=== PATIENT | female | born 1965 | race Two or more races ===

== ENCOUNTER 2020-09-20 11:23 | Observation (INO) | payer MEDICARE ==
[2020-09-20] MEDS ORDERED: Ketorolac 30 MG/ML SDV IVPUSH ONE (11:45)
[2020-09-20] MEDS ORDERED: Ondansetron 4 MG/2 ML SDV IVPUSH ONE (11:45)
[2020-09-20] MEDS ORDERED: Sodium Chloride 0.9% 1,000 ML IV ONE (11:45)
[2020-09-20] MEDS ORDERED: diphenhydrAMINE 50 MG/ML SDV IVPUSH ONE (11:45)
--- NOTE | 2020-09-20 11:57 | EDM.PDOC ---
ED HPI GENERAL MEDICAL PROBLEM - General Chief Complaint: Gastrointestinal Problem Stated Complaint: VOMITING Time Seen by Provider: 09/20/20 11:25 Source of Information: Reports: Patient - History of Present Illness INITIAL COMMENTS - FREE TEXT/NARRATIVE: c/o abd pain x 2d has chronic recurrent abd pain, abd pain x 2d initial c/o, then said 3d no PO intake today altho does not have dec'd turgor pain continuous, never without pain no BM in past 2d pain more R sided altho says it hurts throughout LABS/IMAGING: none previous here at [facility] PCP: Dr Damon whose office sent his last clinic note from 07-01-20 MPMP: in past yr with 4 fills of Lyrica 75 mg TID, all in past 4 months, no narcotics PSH: several abd surgeries including appy and choly, has h/o SBO, has had 8 surgeries total as per right lower abdomen Pain Score (Numeric/FACES): 10 - Related Data Allergies Allergy/AdvReac Type Severity Reaction Status Date / Time No Known Allergies Allergy Verified 09/20/20 11:41 ED ROS GENERAL - Review of Systems Review Of Systems: See Below Constitutional: Reports: No Symptoms HEENT: Reports: No Symptoms Respiratory: Reports: No Symptoms Cardiovascular: Reports: No Symptoms Endocrine: Reports: No Symptoms GI/Abdominal: Reports: Abdominal Pain, Nausea, Vomiting : Reports: No Symptoms Musculoskeletal: Reports: No Symptoms Skin: Reports: No Symptoms Neurological: Reports: No Symptoms Psychiatric: Reports: No Symptoms Hematologic/Lymphatic: Reports: No Symptoms Immunologic: Reports: No Symptoms ED EXAM, GI/ABD - Physical Exam Exam: See Below Exam Limited By: No Limitations General Appearance: Alert, WD/WN, Other (holding abd on R side) Nose: Normal Inspection Throat/Mouth: Normal Inspection, Normal Lips, Normal Voice, No Airway Compromise Head: Atraumatic, Normocephalic Neck: Normal Inspection, Supple, Non-Tender, Full Range of Motion. No: Lymphadenopathy (R) Respiratory/Chest: No Respiratory Distress, Lungs Clear, Normal Breath Sounds Cardiovascular: Regular Rate, Rhythm, No Edema, Other (2/6 ANGELI at LSB) GI/Abdominal Exam: Other (good BS x 4, wide old midline scar from xiphoid to umbilicus, no localized pain, has nonspecific c/o tender throughout with a little less on right, no CVAT b/l, no guard/rebound) Back Exam: Normal Inspection, Full Range of Motion, NT Extremities: Normal Inspection, Normal Range of Motion, Non-Tender, No Pedal Amrik ma Neurological: Alert, Oriented, CN II-XII Intact, Normal Cognition, No Motor/Sensory Deficits Psychiatric: Anxious Skin Exam: Warm, Dry, Intact, Normal Color, No Rash Lymphatic: No Adenopathy Course - Vital Signs Last Recorded V/S: Last Vital Signs Temp 36.2 C 09/20/20 11:25 Pulse 71 09/20/20 14:20 Resp 15 09/20/20 14:20 BP 158/67 H 09/20/20 14:20 Pulse Ox 97 09/20/20 14:20 - Orders/Labs/Meds Orders: Active Orders 24 hr Category Date Time Status Abdomen Pelvis w Cont [CT] Stat Exams 09/20/20 11:57 Ordered Labs: Laboratory Tests 09/20/20 09/20/20 09/20/20 Range/Units 12:11 12:11 12:11 WBC 11.0 H (3.0-10.3) x10-3/uL RBC 4.62 (3.60-5.20) x10(6)uL Hgb 13.6 (11.4-15.5) g/dL Hct 41.5 (34.2-48.2) % MCV 89.7 (76.7-100.5) fL MCH 29.4 (23.9-33.9) pg MCHC 32.8 (31.9-34.8) g/dL RDW 14.1 (12.3-16.5) % Plt Count 308 (151-488) x10(3)uL MPV 8.7 (7.1-12.4) fL Neut % (Auto) 70.3 (30.8-76.2) % Lymph % (Auto) 22.7 (18.4-52.1) % [place] % (Auto) 5.7 (4.4-15.7) % Eos % (Auto) 0.5 L (0.6-8.1) % Baso % (Auto) 0.8 (0.2-1.5) % Neut # (Auto) 7.7 H (1.5-6.3) x10-3/uL Lymph # (Auto) 2.5 (1.0-4.4) x10-3/uL [place] # (Auto) 0.6 (0.3-1.0) x10-3/uL Eos # (Auto) 0.1 (0.0-0.8) x10-3/uL Baso # (Auto) 0.1 (0.0-0.1) x10-3/uL Sodium 140 (135-145) mmol/L Potassium 3.7 (3.5-5.3) mmol/L Chloride 103 (100-110) mmol/L Carbon Dioxide 28 (21-32) mmol/L BUN 15 (7-18) mg/dL Creatinine 0.9 (0.55-1.02) mg/dL Est Cr Clr Drug Dosing TNP Estimated GFR (MDRD) > 60 (>60) BUN/Creatinine Ratio 16.7 (9-20) Glucose 127 H (80-116) mg/dL Lactic Acid (0.4-2.0) mmol/L Calcium 8.8 (8.6-10.2) mg/dL Total Bilirubin 0.5 (0.1-1.3) mg/dL AST 17 (5-25) IU/L ALT 29 (12-36) U/L Alkaline Phosphatase 108 (56-112) IU/L Troponin I (4.0-60.3) pg/mL C-Reactive Protein 4.5 H* (0.5-0.9) mg/dL Total Protein 8.6 H (6.0-8.0) g/dL Albumin 3.6 (3.5-5.2) g/dL Globulin 5.0 g/dL Albumin/Globulin Ratio 0.7 Lipase 46 L (73-393) U/L Urine Color (YELLOW) Urine Appearance (CLEAR) Urine pH (5.0-6.5) Ur Specific [place] (1.010-1.025) Urine Protein (NEGATIVE) mg/dL Urine Glucose (UA) (NORMAL) mg/dL Urine Ketones (NEGATIVE) mg/dL Urine Occult Blood (NEGATIVE) Urine Nitrite (NEGATIVE) Urine Bilirubin (NEGATIVE) Urine Urobilinogen (NEGATIVE) mg/dL Ur Leukocyte Esterase (NEGATIVE) Urine RBC (0-5) Urine WBC (0-5) Ur Squamous Epith Cells (NS,R,O) Urine Bacteria (NS) Urine Mucus (NS) SARS-CoV-2 RNA (JEANNINE) (NEGATIVE) 09/20/20 09/20/20 09/20/20 Range/Units 12:11 12:11 12:34 WBC (3.0-10.3) x10-3/uL RBC (3.60-5.20) x10(6)uL Hgb (11.4-15.5) g/dL Hct (34.2-48.2) % MCV (76.7-100.5) fL MCH (23.9-33.9) pg MCHC (31.9-34.8) g/dL RDW (12.3-16.5) % Plt Count (151-488) x10(3)uL MPV (7.1-12.4) fL Neut % (Auto) (30.8-76.2) % Lymph % (Auto) (18.4-52.1) % [place] % (Auto) (4.4-15.7) % Eos % (Auto) (0.6-8.1) % Baso % (Auto) (0.2-1.5) % Neut # (Auto) (1.5-6.3) x10-3/uL Lymph # (Auto) (1.0-4.4) x10-3/uL [place] # (Auto) (0.3-1.0) x10-3/uL Eos # (Auto) (0.0-0.8) x10-3/uL Baso # (Auto) (0.0-0.1) x10-3/uL Sodium (135-145) mmol/L Potassium (3.5-5.3) mmol/L Chloride (100-110) mmol/L Carbon Dioxide (21-32) mmol/L BUN (7-18) mg/dL Creatinine (0.55-1.02) mg/dL Est Cr Clr Drug Dosing Estimated GFR (MDRD) (>60) BUN/Creatinine Ratio (9-20) Glucose (80-116) mg/dL Lactic Acid 1.1 (0.4-2.0) mmol/L Calcium (8.6-10.2) mg/dL Total Bilirubin (0.1-1.3) mg/dL AST (5-25) IU/L ALT (12-36) U/L Alkaline Phosphatase (56-112) IU/L Troponin I 4.3 (4.0-60.3) pg/mL C-Reactive Protein (0.5-0.9) mg/dL Total Protein (6.0-8.0) g/dL Albumin (3.5-5.2) g/dL Globulin g/dL Albumin/Globulin Ratio Lipase (73-393) U/L Urine Color (YELLOW) Urine Appearance (CLEAR) Urine pH (5.0-6.5) Ur Specific [place] (1.010-1.025) Urine Protein (NEGATIVE) mg/dL Urine Glucose (UA) (NORMAL) mg/dL Urine Ketones (NEGATIVE) mg/dL Urine Occult Blood (NEGATIVE) Urine Nitrite (NEGATIVE) Urine Bilirubin (NEGATIVE) Urine Urobilinogen (NEGATIVE) mg/dL Ur Leukocyte Esterase (NEGATIVE) Urine RBC (0-5) Urine WBC (0-5) Ur Squamous Epith Cells (NS,R,O) Urine Bacteria (NS) Urine Mucus (NS) SARS-CoV-2 RNA (JEANNINE) Negative (NEGATIVE) 09/20/20 Range/Units 13:05 WBC (3.0-10.3) x10-3/uL RBC (3.60-5.20) x10(6)uL Hgb (11.4-15.5) g/dL Hct (34.2-48.2) % MCV (76.7-100.5) fL MCH (23.9-33.9) pg MCHC (31.9-34.8) g/dL RDW (12.3-16.5) % Plt Count (151-488) x10(3)uL MPV (7.1-12.4) fL Neut % (Auto) (30.8-76.2) % Lymph % (Auto) (18.4-52.1) % [place] % (Auto) (4.4-15.7) % Eos % (Auto) (0.6-8.1) % Baso % (Auto) (0.2-1.5) % Neut # (Auto) (1.5-6.3) x10-3/uL Lymph # (Auto) (1.0-4.4) x10-3/uL [place] # (Auto) (0.3-1.0) x10-3/uL Eos # (Auto) (0.0-0.8) x10-3/uL Baso # (Auto) (0.0-0.1) x10-3/uL Sodium (135-145) mmol/L Potassium (3.5-5.3) mmol/L Chloride (100-110) mmol/L Carbon Dioxide (21-32) mmol/L BUN (7-18) mg/dL Creatinine (0.55-1.02) mg/dL Est Cr Clr Drug Dosing Estimated GFR (MDRD) (>60) BUN/Creatinine Ratio (9-20) Glucose (80-116) mg/dL Lactic Acid (0.4-2.0) mmol/L Calcium (8.6-10.2) mg/dL Total Bilirubin (0.1-1.3) mg/dL AST (5-25) IU/L ALT (12-36) U/L Alkaline Phosphatase (56-112) IU/L Troponin I (4.0-60.3) pg/mL C-Reactive Protein (0.5-0.9) mg/dL Total Protein (6.0-8.0) g/dL Albumin (3.5-5.2) g/dL Globulin g/dL Albumin/Globulin Ratio Lipase (73-393) U/L Urine Color Yellow (YELLOW) Urine Appearance Cloudy (CLEAR) Urine pH 5.0 (5.0-6.5) Ur Specific [place] 1.020 (1.010-1.025) Urine Protein 30 H (NEGATIVE) mg/dL Urine Glucose (UA) Normal (NORMAL) mg/dL Urine Ketones Negative (NEGATIVE) mg/dL Urine Occult Blood Moderate H (NEGATIVE) Urine Nitrite Negative (NEGATIVE) Urine Bilirubin Small H (NEGATIVE) Urine Urobilinogen Normal (NEGATIVE) mg/dL Ur Leukocyte Esterase Negative (NEGATIVE) Urine RBC 5-10 H (0-5) Urine WBC 0-5 (0-5) Ur Squamous Epith Cells Moderate H (NS,R,O) Urine Bacteria Few H (NS) Urine Mucus Few H (NS) SARS-CoV-2 RNA (JEANNINE) (NEGATIVE) Meds: Medications Discontinued Medications Generic Name Dose Route Start Last Admin Trade Name Freq PRN Reason Stop Dose Admin Diphenhydramine HCl 50 mg 09/20/20 11:45 09/20/20 11:54 Diphenhydramine 50 Mg/Ml Sdv IVPUSH 09/20/20 11:46 50 mg ONETIME ONE Administration Sodium Chloride 1,000 mls @ 999 mls/hr 09/20/20 11:45 09/20/20 11:54 Normal Saline IV 09/20/20 12:45 999 mls/hr .BOLUS ONE Administration Iopamidol 100 ml 09/20/20 12:41 09/20/20 13:37 Iopamidol 755 Mg/Ml 100 Ml Bottle IV 09/20/20 12:42 100 ml . DIRECTED ONE Administration Ketorolac Tromethamine 30 mg 09/20/20 11:45 09/20/20 11:54 Ketorolac 30 Mg/Ml Sdv IVPUSH 09/20/20 11:46 30 mg ONETIME ONE Administration Metoclopramide HCl 10 mg 09/20/20 13:12 09/20/20 13:30 Metoclopramide 10 Mg/2 Ml Sdv IVPUSH 09/20/20 13:13 10 mg ONETIME ONE Administration Morphine Sulfate 2 mg 09/20/20 12:14 09/20/20 12:17 Morphine 2 Mg/Ml Syringe IVPUSH 09/20/20 12:15 2 mg ONETIME ONE Administration Morphine Sulfate 4 mg 09/20/20 13:12 09/20/20 13:30 Morphine 4 Mg/Ml Vial IVPUSH 09/20/20 13:13 4 mg ONETIME ONE Administration Ondansetron HCl 4 mg 09/20/20 11:45 09/20/20 11:54 Ondansetron 4 Mg/2 Ml Sdv IVPUSH 09/20/20 11:46 4 mg ONETIME ONE Administration - Re-Assessments/Exams Free Text/Narrative Re-Assessment/Exam: 09/20/20 14:33 Dr White called, CT abd/pelvis with IV contrast is nonspecific, possible slight prominent and rounded head of pancreas 4.8 cm, however pt has more generalized nonspecific discomfort, there is slight prominence of small bowel loops at distal jejunum without CT criteria for SBO 09/20/20 14:41 CT reviewed, no inc'd stool cause of inc'd CRP uncertain, pt roping machine tender mainly on R side, does c/o of 1-2+ tender still at RUQ/R flank?RLQ ok with admit d/w Dr Sr who accepted pt to obs Departure - Departure Time of Disposition: 14:58 Disposition: Refer to Observation Condition: Fair Clinical Impression: Abdominal pain, Elevated C-reactive protein (CRP) - Discharge Information *PRESCRIPTION DRUG MONITORING PROGRAM REVIEWED*: Not Applicable *COPY OF PRESCRIPTION DRUG MONITORING REPORT IN PATIENT ELENA: Not Applicable Referrals: Gonzales Damon MD [Primary Care Provider] - Forms: ED Department Discharge Sepsis Event Note (ED) - Focused Exam Vital Signs: Vital Signs Temp Pulse Resp BP Pulse Ox 09/20/20 14:20 71 15 158/67 H 97 09/20/20 11:25 36.2 C 90 15 153/79 H 97 - My Orders Last 24 Hours: My Active Orders 09/20/20 11:57 Abdomen Pelvis w Cont [CT] Stat - Assessment/Plan Last 24 Hours: My Active Orders 09/20/20 11:57 Abdomen Pelvis w Cont [CT] Stat
[2020-09-20] MEDS ORDERED: Morphine 2 MG/ML SYRINGE IVPUSH ONE (12:14)
[2020-09-20] MEDS ORDERED: Iopamidol 755 Mg/ML 100 ML Bottle IV ONE (12:41)
[2020-09-20] MEDS ORDERED: Metoclopramide 10 MG/2 ML SDV IVPUSH ONE (13:12)
[2020-09-20] MEDS ORDERED: Morphine 4 MG/ML VIAL IVPUSH ONE (13:12)
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
[2020-09-20] MEDS: Ondansetron 4 MG/2 ML SDV IVPUSH PRN (16:30)
[2020-09-20] MEDS: Morphine 2 MG/ML SYRINGE IVPUSH PRN ×2 (16:34→20:34)
[2020-09-20] MEDS ORDERED: Sodium Chloride 0.9% 10 ML Syringe FLUSH PRN (17:28)
[2020-09-20] MEDS ORDERED: traZODone 100 MG Tab PO PRN (17:32)
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
[2020-09-20] MEDS: Ketorolac 30 MG/ML SDV IVPUSH PRN (18:56)
[2020-09-20] MEDS: Sodium Chloride 0.9% 10 ML Syringe FLUSH PRN (18:56)
[2020-09-20] MEDS: Enoxaparin 40 MG/0.4 ML Syringe SUBCUT SCH (18:58)
[2020-09-20] MEDS: Piperacillin/Tazobactam 3.375 GM in Sodium Chloride 0.9% 50 ML IV SCH ×2 (18:58→23:55)
[2020-09-20] MEDS: Pregabalin 75 MG Cap PO SCH (20:34)
[2020-09-21] MEDS: Morphine 2 MG/ML SYRINGE IVPUSH PRN ×2 (00:05→06:26)
[2020-09-21] MEDS: Ondansetron 4 MG Tab.DIS PO PRN ×2 (00:22→11:58)
[2020-09-21] MEDS: Lactated Ringers 1,000 ML IV SCH ×3 (03:10→11:56)
[2020-09-21] MEDS: Ketorolac 30 MG/ML SDV IVPUSH PRN ×2 (03:55→13:09)
[2020-09-21] MEDS: Piperacillin/Tazobactam 3.375 GM in Sodium Chloride 0.9% 50 ML IV SCH ×2 (06:01→12:36)
[2020-09-21] MEDS: Ondansetron 4 MG/2 ML SDV IVPUSH PRN (07:26)
[2020-09-21] MEDS: Pregabalin 75 MG Cap PO SCH ×4 (08:12→21:00)
[2020-09-21] MEDS: Multivitamin Tab PO SCH (08:12)
[2020-09-21] MEDS: SERTRALINE 100 MG PO SCH (08:19)
--- NOTE | 2020-09-21 08:53 | PCM.PN ---
- General Info Date of Service: 09/21/20 Admission Dx/Problem (Free Text): Agent states she still have an pain in the right side. She thinks it might be a little bit better. She still is nausea. She has not moved her bowels. Denies passing gas. She denies fevers, chills, cough, chest pain or shortness of breath. She says she is a little dysuria when she urinated. - Patient Data Vitals - Most Recent: Last Vital Signs Temp 98.5 F 09/21/20 07:15 Pulse 67 09/21/20 07:15 Resp 18 09/21/20 07:15 BP 149/87 H 09/21/20 07:15 Pulse Ox 95 09/21/20 07:15 Weight - Most Recent: 251 lb 14.4 oz I&O - Last 24 Hours: Intake & Output 09/20/20 09/21/20 09/21/20 22:59 06:59 14:59 Intake Total 1077 1271 200 Output Total 100 Balance 1077 1171 200 Lab Results Last 24 Hours: Laboratory Results - last 24 hr 09/20/20 09/20/20 09/20/20 Range/Units 12:11 12:11 12:11 WBC 11.0 H (3.0-10.3) x10-3/uL RBC 4.62 (3.60-5.20) x10(6)uL Hgb 13.6 (11.4-15.5) g/dL Hct 41.5 (34.2-48.2) % MCV 89.7 (76.7-100.5) fL MCH 29.4 (23.9-33.9) pg MCHC 32.8 (31.9-34.8) g/dL RDW 14.1 (12.3-16.5) % Plt Count 308 (151-488) x10(3)uL MPV 8.7 (7.1-12.4) fL Neut % (Auto) 70.3 (30.8-76.2) % Lymph % (Auto) 22.7 (18.4-52.1) % Early % (Auto) 5.7 (4.4-15.7) % Eos % (Auto) 0.5 L (0.6-8.1) % Baso % (Auto) 0.8 (0.2-1.5) % Neut # (Auto) 7.7 H (1.5-6.3) x10-3/uL Lymph # (Auto) 2.5 (1.0-4.4) x10-3/uL Early # (Auto) 0.6 (0.3-1.0) x10-3/uL Eos # (Auto) 0.1 (0.0-0.8) x10-3/uL Baso # (Auto) 0.1 (0.0-0.1) x10-3/uL Sodium 140 (135-145) mmol/L Potassium 3.7 (3.5-5.3) mmol/L Chloride 103 (100-110) mmol/L Carbon Dioxide 28 (21-32) mmol/L BUN 15 (7-18) mg/dL Creatinine 0.9 (0.55-1.02) mg/dL Est Cr Clr Drug Dosing TNP Estimated GFR (MDRD) > 60 (>60) BUN/Creatinine Ratio 16.7 (9-20) Glucose 127 H (80-116) mg/dL Lactic Acid (0.4-2.0) mmol/L Calcium 8.8 (8.6-10.2) mg/dL Total Bilirubin 0.5 (0.1-1.3) mg/dL AST 17 (5-25) IU/L ALT 29 (12-36) U/L Alkaline Phosphatase 108 (56-112) IU/L Troponin I (4.0-60.3) pg/mL C-Reactive Protein 4.5 H* (0.5-0.9) mg/dL Total Protein 8.6 H (6.0-8.0) g/dL Albumin 3.6 (3.5-5.2) g/dL Globulin 5.0 g/dL Albumin/Globulin Ratio 0.7 Lipase 46 L (73-393) U/L Urine Color (YELLOW) Urine Appearance (CLEAR) Urine pH (5.0-6.5) Ur Specific [place] (1.010-1.025) Urine Protein (NEGATIVE) mg/dL Urine Glucose (UA) (NORMAL) mg/dL Urine Ketones (NEGATIVE) mg/dL Urine Occult Blood (NEGATIVE) Urine Nitrite (NEGATIVE) Urine Bilirubin (NEGATIVE) Urine Urobilinogen (NEGATIVE) mg/dL Ur Leukocyte Esterase (NEGATIVE) Urine RBC (0-5) Urine WBC (0-5) Ur Squamous Epith Cells (NS,R,O) Urine Bacteria (NS) Urine Mucus (NS) SARS-CoV-2 RNA (JEANNINE) (NEGATIVE) 09/20/20 09/20/20 09/20/20 Range/Units 12:11 12:11 12:34 WBC (3.0-10.3) x10-3/uL RBC (3.60-5.20) x10(6)uL Hgb (11.4-15.5) g/dL Hct (34.2-48.2) % MCV (76.7-100.5) fL MCH (23.9-33.9) pg MCHC (31.9-34.8) g/dL RDW (12.3-16.5) % Plt Count (151-488) x10(3)uL MPV (7.1-12.4) fL Neut % (Auto) (30.8-76.2) % Lymph % (Auto) (18.4-52.1) % Early % (Auto) (4.4-15.7) % Eos % (Auto) (0.6-8.1) % Baso % (Auto) (0.2-1.5) % Neut # (Auto) (1.5-6.3) x10-3/uL Lymph # (Auto) (1.0-4.4) x10-3/uL Early # (Auto) (0.3-1.0) x10-3/uL Eos # (Auto) (0.0-0.8) x10-3/uL Baso # (Auto) (0.0-0.1) x10-3/uL Sodium (135-145) mmol/L Potassium (3.5-5.3) mmol/L Chloride (100-110) mmol/L Carbon Dioxide (21-32) mmol/L BUN (7-18) mg/dL Creatinine (0.55-1.02) mg/dL Est Cr Clr Drug Dosing Estimated GFR (MDRD) (>60) BUN/Creatinine Ratio (9-20) Glucose (80-116) mg/dL Lactic Acid 1.1 (0.4-2.0) mmol/L Calcium (8.6-10.2) mg/dL Total Bilirubin (0.1-1.3) mg/dL AST (5-25) IU/L ALT (12-36) U/L Alkaline Phosphatase (56-112) IU/L Troponin I 4.3 (4.0-60.3) pg/mL C-Reactive Protein (0.5-0.9) mg/dL Total Protein (6.0-8.0) g/dL Albumin (3.5-5.2) g/dL Globulin g/dL Albumin/Globulin Ratio Lipase (73-393) U/L Urine Color (YELLOW) Urine Appearance (CLEAR) Urine pH (5.0-6.5) Ur Specific [place] (1.010-1.025) Urine Protein (NEGATIVE) mg/dL Urine Glucose (UA) (NORMAL) mg/dL Urine Ketones (NEGATIVE) mg/dL Urine Occult Blood (NEGATIVE) Urine Nitrite (NEGATIVE) Urine Bilirubin (NEGATIVE) Urine Urobilinogen (NEGATIVE) mg/dL Ur Leukocyte Esterase (NEGATIVE) Urine RBC (0-5) Urine WBC (0-5) Ur Squamous Epith Cells (NS,R,O) Urine Bacteria (NS) Urine Mucus (NS) SARS-CoV-2 RNA (JEANNINE) Negative (NEGATIVE) 09/20/20 09/21/20 09/21/20 Range/Units 13:05 05:11 06:20 WBC 6.7 (3.0-10.3) x10-3/uL RBC 4.39 (3.60-5.20) x10(6)uL Hgb 13.0 (11.4-15.5) g/dL Hct 39.6 (34.2-48.2) % MCV 90.3 (76.7-100.5) fL MCH 29.5 (23.9-33.9) pg MCHC 32.7 (31.9-34.8) g/dL RDW 14.1 (12.3-16.5) % Plt Count 283 (151-488) x10(3)uL MPV 8.7 (7.1-12.4) fL Neut % (Auto) 60.5 (30.8-76.2) % Lymph % (Auto) 28.0 (18.4-52.1) % Early % (Auto) 8.4 (4.4-15.7) % Eos % (Auto) 2.0 (0.6-8.1) % Baso % (Auto) 1.1 (0.2-1.5) % Neut # (Auto) 4.0 (1.5-6.3) x10-3/uL Lymph # (Auto) 1.9 (1.0-4.4) x10-3/uL Early # (Auto) 0.6 (0.3-1.0) x10-3/uL Eos # (Auto) 0.1 (0.0-0.8) x10-3/uL Baso # (Auto) 0.1 (0.0-0.1) x10-3/uL Sodium (135-145) mmol/L Potassium (3.5-5.3) mmol/L Chloride (100-110) mmol/L Carbon Dioxide (21-32) mmol/L BUN (7-18) mg/dL Creatinine (0.55-1.02) mg/dL Est Cr Clr Drug Dosing Estimated GFR (MDRD) (>60) BUN/Creatinine Ratio (9-20) Glucose (80-116) mg/dL Lactic Acid (0.4-2.0) mmol/L Calcium (8.6-10.2) mg/dL Total Bilirubin (0.1-1.3) mg/dL AST (5-25) IU/L ALT (12-36) U/L Alkaline Phosphatase (56-112) IU/L Troponin I (4.0-60.3) pg/mL C-Reactive Protein (0.5-0.9) mg/dL Total Protein (6.0-8.0) g/dL Albumin (3.5-5.2) g/dL Globulin g/dL Albumin/Globulin Ratio Lipase (73-393) U/L Urine Color Yellow Yellow (YELLOW) Urine Appearance Cloudy Slightly cloudy (CLEAR) Urine pH 5.0 5.0 (5.0-6.5) Ur Specific [place] 1.020 1.025 (1.010-1.025) Urine Protein 30 H 30 H (NEGATIVE) mg/dL Urine Glucose (UA) Normal Normal (NORMAL) mg/dL Urine Ketones Negative 15 H (NEGATIVE) mg/dL Urine Occult Blood Moderate H Trace (NEGATIVE) Urine Nitrite Negative Negative (NEGATIVE) Urine Bilirubin Small H Negative (NEGATIVE) Urine Urobilinogen Normal 1 H (NEGATIVE) mg/dL Ur Leukocyte Esterase Negative Small H (NEGATIVE) Urine RBC 5-10 H 0-5 (0-5) Urine WBC 0-5 0-5 (0-5) Ur Squamous Epith Cells Moderate H Moderate H (NS,R,O) Urine Bacteria Few H Few H (NS) Urine Mucus Few H (NS) SARS-CoV-2 RNA (JEANNINE) (NEGATIVE) 09/21/20 09/21/20 Range/Units 06:20 06:20 WBC (3.0-10.3) x10-3/uL RBC (3.60-5.20) x10(6)uL Hgb (11.4-15.5) g/dL Hct (34.2-48.2) % MCV (76.7-100.5) fL MCH (23.9-33.9) pg MCHC (31.9-34.8) g/dL RDW (12.3-16.5) % Plt Count (151-488) x10(3)uL MPV (7.1-12.4) fL Neut % (Auto) (30.8-76.2) % Lymph % (Auto) (18.4-52.1) % Early % (Auto) (4.4-15.7) % Eos % (Auto) (0.6-8.1) % Baso % (Auto) (0.2-1.5) % Neut # (Auto) (1.5-6.3) x10-3/uL Lymph # (Auto) (1.0-4.4) x10-3/uL Early # (Auto) (0.3-1.0) x10-3/uL Eos # (Auto) (0.0-0.8) x10-3/uL Baso # (Auto) (0.0-0.1) x10-3/uL Sodium 140 (135-145) mmol/L Potassium 3.5 (3.5-5.3) mmol/L Chloride 103 (100-110) mmol/L Carbon Dioxide 27 (21-32) mmol/L BUN 16 (7-18) mg/dL Creatinine 0.8 (0.55-1.02) mg/dL Est Cr Clr Drug Dosing 85.92 Estimated GFR (MDRD) > 60 (>60) BUN/Creatinine Ratio 20.0 (9-20) Glucose 98 (80-116) mg/dL Lactic Acid (0.4-2.0) mmol/L Calcium 9.0 (8.6-10.2) mg/dL Total Bilirubin 0.6 (0.1-1.3) mg/dL AST 127 H D (5-25) IU/L ALT 149 H D (12-36) U/L Alkaline Phosphatase 129 H (56-112) IU/L Troponin I (4.0-60.3) pg/mL C-Reactive Protein 3.7 H* (0.5-0.9) mg/dL Total Protein 7.4 (6.0-8.0) g/dL Albumin 3.0 L (3.5-5.2) g/dL Globulin 4.4 g/dL Albumin/Globulin Ratio 0.7 Lipase (73-393) U/L Urine Color (YELLOW) Urine Appearance (CLEAR) Urine pH (5.0-6.5) Ur Specific [place] (1.010-1.025) Urine Protein (NEGATIVE) mg/dL Urine Glucose (UA) (NORMAL) mg/dL Urine Ketones (NEGATIVE) mg/dL Urine Occult Blood (NEGATIVE) Urine Nitrite (NEGATIVE) Urine Bilirubin (NEGATIVE) Urine Urobilinogen (NEGATIVE) mg/dL Ur Leukocyte Esterase (NEGATIVE) Urine RBC (0-5) Urine WBC (0-5) Ur Squamous Epith Cells (NS,R,O) Urine Bacteria (NS) Urine Mucus (NS) SARS-CoV-2 RNA (JEANNINE) (NEGATIVE) Med Orders - Current: Current Medications Enoxaparin Sodium (Enoxaparin 40 Mg/0.4 Ml Syringe) 40 mg SUBCUT Q24H [facility] Last Admin: 09/20/20 18:58 Dose: 40 mg Documented by: Lactated Ringer's (Ringers, Lactated) 1,000 mls @ 125 mls/hr IV ASDIRECTED [facility] Last Admin: 09/21/20 07:14 Dose: 125 mls/hr Documented by: Piperacillin Sod/Tazobactam (Sod 3.375 gm/ Sodium Chloride) 50 mls @ 100 mls/hr IV Q6H [facility] Last Admin: 09/21/20 06:01 Dose: 100 mls/hr Documented by: Ketorolac Tromethamine (Ketorolac 30 Mg/Ml Sdv) 30 mg IVPUSH Q6H PRN PRN Reason: Pain Stop: 09/25/20 17:46 Last Admin: 09/21/20 03:55 Dose: 30 mg Documented by: Morphine Sulfate (Morphine 2 Mg/Ml Syringe) 2 mg IVPUSH Q3H PRN PRN Reason: PAIN Last Admin: 09/21/20 06:26 Dose: 2 mg Documented by: Multivitamins/Minerals/Vitamin C (Multivitamin Tab) 1 tab PO DAILY [facility] Last Admin: 09/21/20 08:12 Dose: Not Given Documented by: Ondansetron HCl (Ondansetron 4 Mg/2 Ml Sdv) 4 mg IVPUSH Q4H PRN PRN Reason: Nausea/Vomiting Last Admin: 09/21/20 07:26 Dose: 4 mg Documented by: Ondansetron HCl (Ondansetron 4 Mg Tab.Dis) 4 mg PO Q4H PRN PRN Reason: nausea, able to take PO Last Admin: 09/21/20 00:22 Dose: 4 mg Documented by: Pregabalin (Pregabalin 75 Mg Cap) 75 mg PO QID [facility] Last Admin: 09/21/20 08:12 Dose: 75 mg Documented by: Sertraline HCl (Sertraline 100 Mg Tab Own Med) 150 mg PO DAILY [facility] Last Admin: 09/21/20 08:19 Dose: 150 mg Documented by: Sodium Chloride (Sodium Chloride 0.9% 10 Ml Syringe) 10 ml FLUSH ASDIRECTED PRN PRN Reason: flush med Last Admin: 09/20/20 18:56 Dose: 10 ml Documented by: Sodium Chloride (Sodium Chloride 0.9% 10 Ml Syringe) 10 ml FLUSH ASDIRECTED PRN PRN Reason: Keep Vein Open Trazodone HCl (Trazodone 100 Mg Tab) 100 mg PO BEDTIME PRN PRN Reason: Sleep Discontinued Medications Diphenhydramine HCl (Diphenhydramine 50 Mg/Ml Sdv) 50 mg IVPUSH ONETIME ONE Stop: 09/20/20 11:46 Last Admin: 09/20/20 11:54 Dose: 50 mg Documented by: Sodium Chloride (Normal Saline) 1,000 mls @ 999 mls/hr IV .BOLUS ONE Stop: 09/20/20 12:45 Last Admin: 09/20/20 11:54 Dose: 999 mls/hr Documented by: Iopamidol (Iopamidol 755 Mg/Ml 100 Ml Bottle) 100 ml IV . DIRECTED ONE Stop: 09/20/20 12:42 Last Admin: 09/20/20 13:37 Dose: 100 ml Documented by: Ketorolac Tromethamine (Ketorolac 30 Mg/Ml Sdv) 30 mg IVPUSH ONETIME ONE Stop: 09/20/20 11:46 Last Admin: 09/20/20 11:54 Dose: 30 mg Documented by: Metoclopramide HCl (Metoclopramide 10 Mg/2 Ml Sdv) 10 mg IVPUSH ONETIME ONE Stop: 09/20/20 13:13 Last Admin: 09/20/20 13:30 Dose: 10 mg Documented by: Morphine Sulfate (Morphine 2 Mg/Ml Syringe) 2 mg IVPUSH ONETIME ONE Stop: 09/20/20 12:15 Last Admin: 09/20/20 12:17 Dose: 2 mg Documented by: Morphine Sulfate (Morphine 4 Mg/Ml Vial) 4 mg IVPUSH ONETIME ONE Stop: 09/20/20 13:13 Last Admin: 09/20/20 13:30 Dose: 4 mg Documented by: Ondansetron HCl (Ondansetron 4 Mg/2 Ml Sdv) 4 mg IVPUSH ONETIME ONE Stop: 09/20/20 11:46 Last Admin: 09/20/20 11:54 Dose: 4 mg Documented by: - Exam General: Alert, Oriented Lungs: Normal Respiratory Effort GI/Abdominal Exam: Other (Soft with normal bowel sounds patient has some pain right lower quadrant without rebound or guarding.) - Patient Data Lab Results Last 24 hrs: Laboratory Results - last 24 hr 09/20/20 09/20/20 09/20/20 Range/Units 12:11 12:11 12:11 WBC 11.0 H (3.0-10.3) x10-3/uL RBC 4.62 (3.60-5.20) x10(6)uL Hgb 13.6 (11.4-15.5) g/dL Hct 41.5 (34.2-48.2) % MCV 89.7 (76.7-100.5) fL MCH 29.4 (23.9-33.9) pg MCHC 32.8 (31.9-34.8) g/dL RDW 14.1 (12.3-16.5) % Plt Count 308 (151-488) x10(3)uL MPV 8.7 (7.1-12.4) fL Neut % (Auto) 70.3 (30.8-76.2) % Lymph % (Auto) 22.7 (18.4-52.1) % Early % (Auto) 5.7 (4.4-15.7) % Eos % (Auto) 0.5 L (0.6-8.1) % Baso % (Auto) 0.8 (0.2-1.5) % Neut # (Auto) 7.7 H (1.5-6.3) x10-3/uL Lymph # (Auto) 2.5 (1.0-4.4) x10-3/uL Early # (Auto) 0.6 (0.3-1.0) x10-3/uL Eos # (Auto) 0.1 (0.0-0.8) x10-3/uL Baso # (Auto) 0.1 (0.0-0.1) x10-3/uL Sodium 140 (135-145) mmol/L Potassium 3.7 (3.5-5.3) mmol/L Chloride 103 (100-110) mmol/L Carbon Dioxide 28 (21-32) mmol/L BUN 15 (7-18) mg/dL Creatinine 0.9 (0.55-1.02) mg/dL Est Cr Clr Drug Dosing TNP Estimated GFR (MDRD) > 60 (>60) BUN/Creatinine Ratio 16.7 (9-20) Glucose 127 H (80-116) mg/dL Lactic Acid (0.4-2.0) mmol/L Calcium 8.8 (8.6-10.2) mg/dL Total Bilirubin 0.5 (0.1-1.3) mg/dL AST 17 (5-25) IU/L ALT 29 (12-36) U/L Alkaline Phosphatase 108 (56-112) IU/L Troponin I (4.0-60.3) pg/mL C-Reactive Protein 4.5 H* (0.5-0.9) mg/dL Total Protein 8.6 H (6.0-8.0) g/dL Albumin 3.6 (3.5-5.2) g/dL Globulin 5.0 g/dL Albumin/Globulin Ratio 0.7 Lipase 46 L (73-393) U/L Urine Color (YELLOW) Urine Appearance (CLEAR) Urine pH (5.0-6.5) Ur Specific [place] (1.010-1.025) Urine Protein (NEGATIVE) mg/dL Urine Glucose (UA) (NORMAL) mg/dL Urine Ketones (NEGATIVE) mg/dL Urine Occult Blood (NEGATIVE) Urine Nitrite (NEGATIVE) Urine Bilirubin (NEGATIVE) Urine Urobilinogen (NEGATIVE) mg/dL Ur Leukocyte Esterase (NEGATIVE) Urine RBC (0-5) Urine WBC (0-5) Ur Squamous Epith Cells (NS,R,O) Urine Bacteria (NS) Urine Mucus (NS) SARS-CoV-2 RNA (JEANNINE) (NEGATIVE) 09/20/20 09/20/20 09/20/20 Range/Units 12:11 12:11 12:34 WBC (3.0-10.3) x10-3/uL RBC (3.60-5.20) x10(6)uL Hgb (11.4-15.5) g/dL Hct (34.2-48.2) % MCV (76.7-100.5) fL MCH (23.9-33.9) pg MCHC (31.9-34.8) g/dL RDW (12.3-16.5) % Plt Count (151-488) x10(3)uL MPV (7.1-12.4) fL Neut % (Auto) (30.8-76.2) % Lymph % (Auto) (18.4-52.1) % Early % (Auto) (4.4-15.7) % Eos % (Auto) (0.6-8.1) % Baso % (Auto) (0.2-1.5) % Neut # (Auto) (1.5-6.3) x10-3/uL Lymph # (Auto) (1.0-4.4) x10-3/uL Early # (Auto) (0.3-1.0) x10-3/uL Eos # (Auto) (0.0-0.8) x10-3/uL Baso # (Auto) (0.0-0.1) x10-3/uL Sodium (135-145) mmol/L Potassium (3.5-5.3) mmol/L Chloride (100-110) mmol/L Carbon Dioxide (21-32) mmol/L BUN (7-18) mg/dL Creatinine (0.55-1.02) mg/dL Est Cr Clr Drug Dosing Estimated GFR (MDRD) (>60) BUN/Creatinine Ratio (9-20) Glucose (80-116) mg/dL Lactic Acid 1.1 (0.4-2.0) mmol/L Calcium (8.6-10.2) mg/dL Total Bilirubin (0.1-1.3) mg/dL AST (5-25) IU/L ALT (12-36) U/L Alkaline Phosphatase (56-112) IU/L Troponin I 4.3 (4.0-60.3) pg/mL C-Reactive Protein (0.5-0.9) mg/dL Total Protein (6.0-8.0) g/dL Albumin (3.5-5.2) g/dL Globulin g/dL Albumin/Globulin Ratio Lipase (73-393) U/L Urine Color (YELLOW) Urine Appearance (CLEAR) Urine pH (5.0-6.5) Ur Specific [place] (1.010-1.025) Urine Protein (NEGATIVE) mg/dL Urine Glucose (UA) (NORMAL) mg/dL Urine Ketones (NEGATIVE) mg/dL Urine Occult Blood (NEGATIVE) Urine Nitrite (NEGATIVE) Urine Bilirubin (NEGATIVE) Urine Urobilinogen (NEGATIVE) mg/dL Ur Leukocyte Esterase (NEGATIVE) Urine RBC (0-5) Urine WBC (0-5) Ur Squamous Epith Cells (NS,R,O) Urine Bacteria (NS) Urine Mucus (NS) SARS-CoV-2 RNA (JEANNINE) Negative (NEGATIVE) 09/20/20 09/21/20 09/21/20 Range/Units 13:05 05:11 06:20 WBC 6.7 (3.0-10.3) x10-3/uL RBC 4.39 (3.60-5.20) x10(6)uL Hgb 13.0 (11.4-15.5) g/dL Hct 39.6 (34.2-48.2) % MCV 90.3 (76.7-100.5) fL MCH 29.5 (23.9-33.9) pg MCHC 32.7 (31.9-34.8) g/dL RDW 14.1 (12.3-16.5) % Plt Count 283 (151-488) x10(3)uL MPV 8.7 (7.1-12.4) fL Neut % (Auto) 60.5 (30.8-76.2) % Lymph % (Auto) 28.0 (18.4-52.1) % Early % (Auto) 8.4 (4.4-15.7) % Eos % (Auto) 2.0 (0.6-8.1) % Baso % (Auto) 1.1 (0.2-1.5) % Neut # (Auto) 4.0 (1.5-6.3) x10-3/uL Lymph # (Auto) 1.9 (1.0-4.4) x10-3/uL Early # (Auto) 0.6 (0.3-1.0) x10-3/uL Eos # (Auto) 0.1 (0.0-0.8) x10-3/uL Baso # (Auto) 0.1 (0.0-0.1) x10-3/uL Sodium (135-145) mmol/L Potassium (3.5-5.3) mmol/L Chloride (100-110) mmol/L Carbon Dioxide (21-32) mmol/L BUN (7-18) mg/dL Creatinine (0.55-1.02) mg/dL Est Cr Clr Drug Dosing Estimated GFR (MDRD) (>60) BUN/Creatinine Ratio (9-20) Glucose (80-116) mg/dL Lactic Acid (0.4-2.0) mmol/L Calcium (8.6-10.2) mg/dL Total Bilirubin (0.1-1.3) mg/dL AST (5-25) IU/L ALT (12-36) U/L Alkaline Phosphatase (56-112) IU/L Troponin I (4.0-60.3) pg/mL C-Reactive Protein (0.5-0.9) mg/dL Total Protein (6.0-8.0) g/dL Albumin (3.5-5.2) g/dL Globulin g/dL Albumin/Globulin Ratio Lipase (73-393) U/L Urine Color Yellow Yellow (YELLOW) Urine Appearance Cloudy Slightly cloudy (CLEAR) Urine pH 5.0 5.0 (5.0-6.5) Ur Specific [place] 1.020 1.025 (1.010-1.025) Urine Protein 30 H 30 H (NEGATIVE) mg/dL Urine Glucose (UA) Normal Normal (NORMAL) mg/dL Urine Ketones Negative 15 H (NEGATIVE) mg/dL Urine Occult Blood Moderate H Trace (NEGATIVE) Urine Nitrite Negative Negative (NEGATIVE) Urine Bilirubin Small H Negative (NEGATIVE) Urine Urobilinogen Normal 1 H (NEGATIVE) mg/dL Ur Leukocyte Esterase Negative Small H (NEGATIVE) Urine RBC 5-10 H 0-5 (0-5) Urine WBC 0-5 0-5 (0-5) Ur Squamous Epith Cells Moderate H Moderate H (NS,R,O) Urine Bacteria Few H Few H (NS) Urine Mucus Few H (NS) SARS-CoV-2 RNA (JEANNINE) (NEGATIVE) 09/21/20 09/21/20 Range/Units 06:20 06:20 WBC (3.0-10.3) x10-3/uL RBC (3.60-5.20) x10(6)uL Hgb (11.4-15.5) g/dL Hct (34.2-48.2) % MCV (76.7-100.5) fL MCH (23.9-33.9) pg MCHC (31.9-34.8) g/dL RDW (12.3-16.5) % Plt Count (151-488) x10(3)uL MPV (7.1-12.4) fL Neut % (Auto) (30.8-76.2) % Lymph % (Auto) (18.4-52.1) % Early % (Auto) (4.4-15.7) % Eos % (Auto) (0.6-8.1) % Baso % (Auto) (0.2-1.5) % Neut # (Auto) (1.5-6.3) x10-3/uL Lymph # (Auto) (1.0-4.4) x10-3/uL Early # (Auto) (0.3-1.0) x10-3/uL Eos # (Auto) (0.0-0.8) x10-3/uL Baso # (Auto) (0.0-0.1) x10-3/uL Sodium 140 (135-145) mmol/L Potassium 3.5 (3.5-5.3) mmol/L Chloride 103 (100-110) mmol/L Carbon Dioxide 27 (21-32) mmol/L BUN 16 (7-18) mg/dL Creatinine 0.8 (0.55-1.02) mg/dL Est Cr Clr Drug Dosing 85.92 Estimated GFR (MDRD) > 60 (>60) BUN/Creatinine Ratio 20.0 (9-20) Glucose 98 (80-116) mg/dL Lactic Acid (0.4-2.0) mmol/L Calcium 9.0 (8.6-10.2) mg/dL Total Bilirubin 0.6 (0.1-1.3) mg/dL AST 127 H D (5-25) IU/L ALT 149 H D (12-36) U/L Alkaline Phosphatase 129 H (56-112) IU/L Troponin I (4.0-60.3) pg/mL C-Reactive Protein 3.7 H* (0.5-0.9) mg/dL Total Protein 7.4 (6.0-8.0) g/dL Albumin 3.0 L (3.5-5.2) g/dL Globulin 4.4 g/dL Albumin/Globulin Ratio 0.7 Lipase (73-393) U/L Urine Color (YELLOW) Urine Appearance (CLEAR) Urine pH (5.0-6.5) Ur Specific [place] (1.010-1.025) Urine Protein (NEGATIVE) mg/dL Urine Glucose (UA) (NORMAL) mg/dL Urine Ketones (NEGATIVE) mg/dL Urine Occult Blood (NEGATIVE) Urine Nitrite (NEGATIVE) Urine Bilirubin (NEGATIVE) Urine Urobilinogen (NEGATIVE) mg/dL Ur Leukocyte Esterase (NEGATIVE) Urine RBC (0-5) Urine WBC (0-5) Ur Squamous Epith Cells (NS,R,O) Urine Bacteria (NS) Urine Mucus (NS) SARS-CoV-2 RNA (JEANNINE) (NEGATIVE) Result Diagrams: 09/21/20 06:20 09/21/20 06:20 Sepsis Event Note - Evaluation Sepsis Screening Result: No Definite Risk - Focused Exam Vital Signs: Vital Signs Temp Pulse Resp BP BP Pulse Ox 09/21/20 07:15 98.5 F 67 18 149/87 H 95 09/21/20 00:00 98.4 F 69 18 149/97 H 94 L - Problem List & Annotations (1) Palliative care status SNOMED Code(s): 753786464 Code(s): Z51.5 - ENCOUNTER FOR PALLIATIVE CARE Status: Acute Current Visit: Yes (2) Abdominal pain SNOMED Code(s): 93969456 Code(s): R10.9 - UNSPECIFIED ABDOMINAL PAIN Status: Acute Current Visit: Yes (3) Elevated C-reactive protein (CRP) SNOMED Code(s): 961624513414744 Code(s): R79.82 - ELEVATED C-REACTIVE PROTEIN (CRP) Status: Acute Current Visit: Yes (4) Microscopic hematuria SNOMED Code(s): 494869260 Code(s): R31.29 - OTHER MICROSCOPIC HEMATURIA Status: Acute Current Visit: Yes (5) Pancreatic enlargement SNOMED Code(s): 2742085 Code(s): K86.9 - DISEASE OF PANCREAS, UNSPECIFIED Status: Acute Current Visit: Yes (6) Elevated LFTs SNOMED Code(s): 335238768 Code(s): R79.89 - OTHER SPECIFIED ABNORMAL FINDINGS OF BLOOD CHEMISTRY Status: Acute Current Visit: Yes - Problem List Review Problem List Initiated/Reviewed/Updated: Yes - My Orders Last 24 Hours: My Active Orders 09/20/20 Dinner Full Liquid Diet [DIET] 09/20/20 16:30 Sodium Chloride 0.9% [Saline Flush] 10 ml FLUSH ASDIRECTED PRN 09/20/20 17:28 Patient Status [ADT] Routine Height and Weight [RC] 0600 May Shower [RC] ASDIRECTED Oxygen Therapy [RC] PRN Up ad Malena [RC] ASDIRECTED VTE/DVT Education [RC] Per Unit Routine Ondansetron [Zofran ODT] 4 mg PO Q4H PRN Sodium Chloride 0.9% [Saline Flush] 10 ml FLUSH ASDIRECTED PRN Peripheral IV Insertion Adult [OM.PC] Routine Resuscitation Status Routine 09/20/20 17:29 Intake and Output [RC] 06,14,22 Sequential Compression Device [OM.PC] Per Unit Routine 09/20/20 17:30 Lactated Ringers [Ringers, Lactated] 1,000 ml IV ASDIRECTED 09/20/20 17:32 traZODone 100 mg PO BEDTIME PRN 09/20/20 18:00 Enoxaparin [Lovenox] 40 mg SUBCUT Q24H Piperacillin/Tazobactam [Zosyn] 3.375 gm Sodium Chloride 0.9% [Normal Saline] 50 ml IV Q6H 09/20/20 20:00 Vital Signs [RC] Q4H 09/20/20 21:00 Pregabalin [Lyrica] 75 mg PO QID 09/21/20 09:00 Multivitamins [Tab-A-Malik] 1 tab PO DAILY Sertraline [Zoloft] 150 mg PO DAILY - Plan Plan:: 1. Continue clear liquids. 2. Start by mouth pain pills. 3. Surgical consultation 4. DC SCD is a patient will wear them. 5. Up and ambulation down the josue.
[2020-09-21] MEDS: Acetaminophen/HYDROcodone 325-10 MG Tab PO PRN ×2 (09:06→15:10)
[2020-09-21] MEDS: Sodium Chloride 0.9% 10 ML Syringe FLUSH PRN (13:09)
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
[2020-09-21] MEDS ORDERED: Acetaminophen/oxyCODONE 325-5 MG Tab PO SCH (15:45)
[2020-09-21] MEDS: Sodium Chloride 0.9% 1,000 ML IV SCH (16:45)
[2020-09-21] MEDS: Enoxaparin 40 MG/0.4 ML Syringe SUBCUT SCH (18:22)
[2020-09-21] MEDS: Acetaminophen/oxyCODONE 325-5 MG Tab PO SCH ×2 (18:52→22:42)
[2020-09-22] MEDS: Acetaminophen/oxyCODONE 325-5 MG Tab PO SCH ×3 (02:35→14:15)
[2020-09-22] MEDS: Sodium Chloride 0.9% 1,000 ML IV SCH (05:25)
--- NOTE | 2020-09-22 07:59 | PCM.PN ---
- General Info Date of Service: 09/22/20 Admission Dx/Problem (Free Text): The patient states she's better today. Less pain. The Percocet scheduled really help. She has not moved her bowels but she is passing gas. She states her nausea is gone. She had a regular diet last night and says she had a good portion and it went down fine. She denies any dysuria, pyuria, hematuria. Reviewed surgical consultation with the patient. - Patient Data Vitals - Most Recent: Last Vital Signs Temp 98.4 F 09/22/20 02:40 Pulse 68 09/22/20 02:40 Resp 16 09/22/20 02:40 BP 154/96 H 09/22/20 02:40 Pulse Ox 94 L 09/22/20 02:40 Weight - Most Recent: 251 lb 14.4 oz I&O - Last 24 Hours: Intake & Output 09/21/20 09/22/20 09/22/20 22:59 06:59 14:59 Intake Total 985 440 Balance 985 440 Lab Results Last 24 Hours: Laboratory Results - last 24 hr 09/22/20 09/22/20 Range/Units 06:15 06:15 Total Bilirubin 0.5 (0.1-1.3) mg/dL Direct Bilirubin 0.13 (0.10-0.20) mg/dL AST 41 H D (5-25) IU/L ALT 94 H D (12-36) U/L Alkaline Phosphatase 113 H (56-112) IU/L C-Reactive Protein 3.2 H* (0.5-0.9) mg/dL Total Protein 7.4 (6.0-8.0) g/dL Albumin 3.0 L (3.5-5.2) g/dL Med Orders - Current: Current Medications Enoxaparin Sodium (Enoxaparin 40 Mg/0.4 Ml Syringe) 40 mg SUBCUT Q24H [facility] Last Admin: 09/21/20 18:22 Dose: 40 mg Documented by: Sodium Chloride (Normal Saline) 1,000 mls @ 75 mls/hr IV ASDIRECTED [facility] Last Admin: 09/22/20 05:25 Dose: 75 mls/hr Documented by: Multivitamins/Minerals/Vitamin C (Multivitamin Tab) 1 tab PO DAILY [facility] Last Admin: 09/21/20 08:12 Dose: Not Given Documented by: Ondansetron HCl (Ondansetron 4 Mg Tab.Dis) 4 mg PO Q4H PRN PRN Reason: nausea, able to take PO Last Admin: 09/21/20 11:58 Dose: 4 mg Documented by: Oxycodone/Acetaminophen (Acetaminophen/Oxycodone 325-5 Mg Tab) 1 tab PO Q4H [facility] Last Admin: 09/22/20 06:53 Dose: 1 tab Documented by: Pregabalin (Pregabalin 75 Mg Cap) 75 mg PO QID [facility] Last Admin: 09/21/20 21:00 Dose: 75 mg Documented by: Sertraline HCl (Sertraline 100 Mg Tab Own Med) 150 mg PO DAILY [facility] Last Admin: 09/21/20 08:19 Dose: 150 mg Documented by: Sodium Chloride (Sodium Chloride 0.9% 10 Ml Syringe) 10 ml FLUSH ASDIRECTED PRN PRN Reason: flush med Last Admin: 09/21/20 13:09 Dose: 10 ml Documented by: Trazodone HCl (Trazodone 100 Mg Tab) 100 mg PO BEDTIME PRN PRN Reason: Sleep Discontinued Medications Hydrocodone Bitart/Acetaminophen (Acetaminophen/Hydrocodone 325-10 Mg Tab) 1 tab PO Q6H PRN PRN Reason: Pain Last Admin: 09/21/20 15:10 Dose: 1 tab Documented by: Diphenhydramine HCl (Diphenhydramine 50 Mg/Ml Sdv) 50 mg IVPUSH ONETIME ONE Stop: 09/20/20 11:46 Last Admin: 09/20/20 11:54 Dose: 50 mg Documented by: Sodium Chloride (Normal Saline) 1,000 mls @ 999 mls/hr IV .BOLUS ONE Stop: 09/20/20 12:45 Last Admin: 09/20/20 11:54 Dose: 999 mls/hr Documented by: Lactated Ringer's (Ringers, Lactated) 1,000 mls @ 125 mls/hr IV ASDIRECTED [facility] Last Admin: 09/21/20 11:56 Dose: 125 mls/hr Documented by: Piperacillin Sod/Tazobactam (Sod 3.375 gm/ Sodium Chloride) 50 mls @ 100 mls/hr IV Q6H [facility] Last Admin: 09/21/20 12:36 Dose: 100 mls/hr Documented by: Iopamidol (Iopamidol 755 Mg/Ml 100 Ml Bottle) 100 ml IV . DIRECTED ONE Stop: 09/20/20 12:42 Last Admin: 09/20/20 13:37 Dose: 100 ml Documented by: Ketorolac Tromethamine (Ketorolac 30 Mg/Ml Sdv) 30 mg IVPUSH ONETIME ONE Stop: 09/20/20 11:46 Last Admin: 09/20/20 11:54 Dose: 30 mg Documented by: Ketorolac Tromethamine (Ketorolac 30 Mg/Ml Sdv) 30 mg IVPUSH Q6H PRN PRN Reason: Pain Stop: 09/25/20 17:46 Last Admin: 09/21/20 13:09 Dose: 30 mg Documented by: Metoclopramide HCl (Metoclopramide 10 Mg/2 Ml Sdv) 10 mg IVPUSH ONETIME ONE Stop: 09/20/20 13:13 Last Admin: 09/20/20 13:30 Dose: 10 mg Documented by: Morphine Sulfate (Morphine 2 Mg/Ml Syringe) 2 mg IVPUSH ONETIME ONE Stop: 09/20/20 12:15 Last Admin: 09/20/20 12:17 Dose: 2 mg Documented by: Morphine Sulfate (Morphine 4 Mg/Ml Vial) 4 mg IVPUSH ONETIME ONE Stop: 09/20/20 13:13 Last Admin: 09/20/20 13:30 Dose: 4 mg Documented by: Morphine Sulfate (Morphine 2 Mg/Ml Syringe) 2 mg IVPUSH Q3H PRN PRN Reason: PAIN Last Admin: 09/21/20 06:26 Dose: 2 mg Documented by: Ondansetron HCl (Ondansetron 4 Mg/2 Ml Sdv) 4 mg IVPUSH ONETIME ONE Stop: 09/20/20 11:46 Last Admin: 09/20/20 11:54 Dose: 4 mg Documented by: Ondansetron HCl (Ondansetron 4 Mg/2 Ml Sdv) 4 mg IVPUSH Q4H PRN PRN Reason: Nausea/Vomiting Last Admin: 09/21/20 07:26 Dose: 4 mg Documented by: Oxycodone/Acetaminophen (Acetaminophen/Oxycodone 325-5 Mg Tab) 1 tab PO Q4H [facility] Last Admin: 09/21/20 17:01 Dose: Not Given Documented by: Sodium Chloride (Sodium Chloride 0.9% 10 Ml Syringe) 10 ml FLUSH ASDIRECTED PRN PRN Reason: Keep Vein Open - Exam General: Alert, Oriented Lungs: Normal Respiratory Effort GI/Abdominal Exam: Other (Abdomen soft with normal bowel sounds. Little tenderness just right lateral to the umbilicus. No rebound or guarding) - Patient Data Lab Results Last 24 hrs: Laboratory Results - last 24 hr 09/22/20 09/22/20 Range/Units 06:15 06:15 Total Bilirubin 0.5 (0.1-1.3) mg/dL Direct Bilirubin 0.13 (0.10-0.20) mg/dL AST 41 H D (5-25) IU/L ALT 94 H D (12-36) U/L Alkaline Phosphatase 113 H (56-112) IU/L C-Reactive Protein 3.2 H* (0.5-0.9) mg/dL Total Protein 7.4 (6.0-8.0) g/dL Albumin 3.0 L (3.5-5.2) g/dL Result Diagrams: 09/21/20 06:20 09/21/20 06:20 Sepsis Event Note - Evaluation Sepsis Screening Result: No Definite Risk - Focused Exam Vital Signs: Vital Signs Temp Pulse Resp BP Pulse Ox 09/22/20 02:40 98.4 F 68 16 154/96 H 94 L 09/21/20 23:00 98.1 F 61 16 147/72 H 94 L 09/21/20 21:00 98.5 F 66 16 158/81 H 96 - Problem List & Annotations (1) Palliative care status SNOMED Code(s): 342212610 Code(s): Z51.5 - ENCOUNTER FOR PALLIATIVE CARE Status: Acute Current Visit: Yes (2) Abdominal pain SNOMED Code(s): 80288120 Code(s): R10.9 - UNSPECIFIED ABDOMINAL PAIN Status: Acute Current Visit: Yes (3) Elevated C-reactive protein (CRP) SNOMED Code(s): 119060359869927 Code(s): R79.82 - ELEVATED C-REACTIVE PROTEIN (CRP) Status: Acute Current Visit: Yes (4) Microscopic hematuria SNOMED Code(s): 454168927 Code(s): R31.29 - OTHER MICROSCOPIC HEMATURIA Status: Acute Current Visit: Yes (5) Pancreatic enlargement SNOMED Code(s): 5306521 Code(s): K86.9 - DISEASE OF PANCREAS, UNSPECIFIED Status: Acute Current Visit: Yes (6) Elevated LFTs SNOMED Code(s): 887799240 Code(s): R79.89 - OTHER SPECIFIED ABNORMAL FINDINGS OF BLOOD CHEMISTRY Status: Acute Current Visit: Yes - Problem List Review Problem List Initiated/Reviewed/Updated: Yes - My Orders Last 24 Hours: My Active Orders 09/21/20 08:54 Notify Provider Consults [RC] ASDIRECTED Consult to Physician [CONS] Routine 09/21/20 09:00 Multivitamins [Tab-A-Malik] 1 tab PO DAILY Sertraline [Zoloft] 150 mg PO DAILY 09/21/20 15:45 Sodium Chloride 0.9% [Normal Saline] 1,000 ml IV ASDIRECTED 09/21/20 Dinner Regular Diet [DIET] 09/21/20 19:00 Acetaminophen/oxyCODONE [Percocet 325-5 MG] 1 tab PO Q4H - Plan Plan:: 1. Discharge to home on Percocet 2. Set up colonoscopy EGD. 3. Set up MRI of the abdomen because of prominent pancreas to rule out any malignancy. This is per radiology recommendations 4. Follow-up with her primary provider within a week.
--- NOTE | 2020-09-22 08:12 | PCM.DCSUM1 ---
Discharge Summary - Hospital Course Free Text/Narrative:: [place] course-patient was admitted due to elevated CRP and abdominal pain. Patient does have partial splenectomy, cholecystectomy, appendectomy and complete hysterectomy with food nephrectomy. Pain was going on for quite a long time so we put her on some pain medication. She has some blood in her urine but no signs of infection. CT scan did not show anything significant except for prominent pancreas on the head that they said they could not rule out maligna ncy. Recommend MRI. She was in for about 48 hours and her white count was slightly elevated next morning went to normal. CRP 3 slowly went down. Her abdominal pain was quite significant she was given morphine and Toradol IV. Then I switched her to hydrocodone which didn't help and the Percocet 5/325 every 4 hours and that helped her. She did not have a BM but she was here but pass gas per she has some nausea that resolved also. Surgery consult else etiology unknown but nothing surgical that she needed EGD and a colonoscopy. That'll be set up outpatient along with an MRI of her abdomen. i will send her home on pain medication and regular diet. Her urine was rechecked the next day and the hematuria resolved. Her liver functions were little higher than second day but then the third day started going down again. Etiology unknown. No further workup on the liver was done at this time Brief History: This is a 55-year-old female patient states she's had about 2 months history of some pain in the right lower quadrant of her abdomen. The last 3 days his become worse with some vomiting. She did have night sweats last night. She has a history constipation and she moved her bowels 2 days ago. And was normal without blood. She denies fevers but feels she might have some chills. She says she's had 8 surgeries on her abdomen. She said her gallbladder, appendix, partial spleen and all her female organs removed. She says she was told she has a polyp in her colon but does not remember ever having a colonoscopy. She is the pain is the right lower quadrant radiates to the left. Some she has some back pain also. She has a history of fibromyalgia and is on medical marijuana currently. She denies any dysuria, pyuria, hematuria. Diagnosis: Stroke: No - Discharge Data Discharge Date: 09/22/20 Discharge Disposition: Home, Self-Care 01 Condition: Fair - Referral to Home Health Primary Care Physician: Gonzales Damon MD - Discharge Diagnosis/Problem(s) (1) Palliative care status SNOMED Code(s): 438866001 ICD Code: Z51.5 - ENCOUNTER FOR PALLIATIVE CARE Status: Acute Current Visit: Yes (2) Abdominal pain SNOMED Code(s): 06073596 ICD Code: R10.9 - UNSPECIFIED ABDOMINAL PAIN Status: Acute Current Visit: Yes (3) Elevated C-reactive protein (CRP) SNOMED Code(s): 760851561015869 ICD Code: R79.82 - ELEVATED C-REACTIVE PROTEIN (CRP) Status: Acute Current Visit: Yes (4) Microscopic hematuria SNOMED Code(s): 069656059 ICD Code: R31.29 - OTHER MICROSCOPIC HEMATURIA Status: Acute Current Visit: Yes (5) Pancreatic enlargement SNOMED Code(s): 3572990 ICD Code: K86.9 - DISEASE OF PANCREAS, UNSPECIFIED Status: Acute Current Visit: Yes (6) Elevated LFTs SNOMED Code(s): 807181873 ICD Code: R79.89 - OTHER SPECIFIED ABNORMAL FINDINGS OF BLOOD CHEMISTRY Status: Acute Current Visit: Yes - Patient Summary/Data Consults: Consultations 09/21/20 08:54 Consult to Physician [CONS] Routine Consulting Provider: Sumit Moreau Call Completed to Consulting Physician: Yes - Patient Instructions Diet: Regular Diet as Tolerated Activity: As Tolerated Driving: May Drive Today Showering/Bathing: May Shower Notify Provider of: Fever, Increased Pain, Nausea and/or Vomiting Other/Special Instructions: 1. Recheck with Dr. Damon in 1 week. 2. EG D/colonoscopy to be set up. 3. MRI abdomen regarding prominent pancreas rule out malignancy - Discharge Plan *PRESCRIPTION DRUG MONITORING PROGRAM REVIEWED*: Not Applicable *COPY OF PRESCRIPTION DRUG MONITORING REPORT IN PATIENT ELENA: Not Applicable Prescriptions/Med Rec: Acetaminophen/oxyCODONE [Percocet 325-5 MG] 1 tab PO Q4H PRN #15 tablet PRN Reason: Pain Home Medications: Home Meds Multivitamin [Daily Malik] 1 tab PO DAILY 09/20/20 [History] Pregabalin 75 mg PO QID 09/20/20 [History] Sertraline [Zoloft] 150 mg PO DAILY 09/20/20 [History] traZODone 100 mg PO BEDTIME PRN 09/20/20 [History] Acetaminophen/oxyCODONE [Percocet 325-5 MG] 1 tab PO Q4H PRN #15 tablet 09/22/20 [Rx] Patient Handouts: Nausea and Vomiting, Adult, [id number], Abdominal Pain, Adult, [id number], Venous Thromboembolism Prevention Forms: ED Department Discharge Referrals: Gonzales Damon MD [Primary Care Provider] - - Discharge Summary/Plan Comment DC Time >30 min.: No - Patient Data Vitals - Most Recent: Last Vital Signs Temp 98.4 F 09/22/20 02:40 Pulse 68 09/22/20 02:40 Resp 16 09/22/20 02:40 BP 154/96 H 09/22/20 02:40 Pulse Ox 94 L 09/22/20 02:40 Weight - Most Recent: 251 lb 14.4 oz I&O - Last 24 hours: Intake & Output 09/21/20 09/22/20 09/22/20 22:59 06:59 14:59 Intake Total 985 440 Balance 985 440 Lab Results - Last 24 hrs: Laboratory Results - last 24 hr 09/22/20 09/22/20 Range/Units 06:15 06:15 Total Bilirubin 0.5 (0.1-1.3) mg/dL Direct Bilirubin 0.13 (0.10-0.20) mg/dL AST 41 H D (5-25) IU/L ALT 94 H D (12-36) U/L Alkaline Phosphatase 113 H (56-112) IU/L C-Reactive Protein 3.2 H* (0.5-0.9) mg/dL Total Protein 7.4 (6.0-8.0) g/dL Albumin 3.0 L (3.5-5.2) g/dL Med Orders - Current: Current Medications Enoxaparin Sodium (Enoxaparin 40 Mg/0.4 Ml Syringe) 40 mg SUBCUT Q24H [facility] Last Admin: 09/21/20 18:22 Dose: 40 mg Documented by: Sodium Chloride (Normal Saline) 1,000 mls @ 75 mls/hr IV ASDIRECTED [facility] Last Admin: 09/22/20 05:25 Dose: 75 mls/hr Documented by: Multivitamins/Minerals/Vitamin C (Multivitamin Tab) 1 tab PO DAILY [facility] Last Admin: 09/21/20 08:12 Dose: Not Given Documented by: Ondansetron HCl (Ondansetron 4 Mg Tab.Dis) 4 mg PO Q4H PRN PRN Reason: nausea, able to take PO Last Admin: 09/21/20 11:58 Dose: 4 mg Documented by: Oxycodone/Acetaminophen (Acetaminophen/Oxycodone 325-5 Mg Tab) 1 tab PO Q4H [facility] Last Admin: 09/22/20 06:53 Dose: 1 tab Documented by: Pregabalin (Pregabalin 75 Mg Cap) 75 mg PO QID [facility] Last Admin: 09/21/20 21:00 Dose: 75 mg Documented by: Sertraline HCl (Sertraline 100 Mg Tab Own Med) 150 mg PO DAILY [facility] Last Admin: 09/21/20 08:19 Dose: 150 mg Documented by: Sodium Chloride (Sodium Chloride 0.9% 10 Ml Syringe) 10 ml FLUSH ASDIRECTED PRN PRN Reason: flush med Last Admin: 09/21/20 13:09 Dose: 10 ml Documented by: Trazodone HCl (Trazodone 100 Mg Tab) 100 mg PO BEDTIME PRN PRN Reason: Sleep Discontinued Medications Hydrocodone Bitart/Acetaminophen (Acetaminophen/Hydrocodone 325-10 Mg Tab) 1 tab PO Q6H PRN PRN Reason: Pain Last Admin: 09/21/20 15:10 Dose: 1 tab Documented by: Diphenhydramine HCl (Diphenhydramine 50 Mg/Ml Sdv) 50 mg IVPUSH ONETIME ONE Stop: 09/20/20 11:46 Last Admin: 09/20/20 11:54 Dose: 50 mg Documented by: Sodium Chloride (Normal Saline) 1,000 mls @ 999 mls/hr IV .BOLUS ONE Stop: 09/20/20 12:45 Last Admin: 09/20/20 11:54 Dose: 999 mls/hr Documented by: Lactated Ringer's (Ringers, Lactated) 1,000 mls @ 125 mls/hr IV ASDIRECTED [facility] Last Admin: 09/21/20 11:56 Dose: 125 mls/hr Documented by: Piperacillin Sod/Tazobactam (Sod 3.375 gm/ Sodium Chloride) 50 mls @ 100 mls/hr IV Q6H [facility] Last Admin: 09/21/20 12:36 Dose: 100 mls/hr Documented by: Iopamidol (Iopamidol 755 Mg/Ml 100 Ml Bottle) 100 ml IV . DIRECTED ONE Stop: 09/20/20 12:42 Last Admin: 09/20/20 13:37 Dose: 100 ml Documented by: Ketorolac Tromethamine (Ketorolac 30 Mg/Ml Sdv) 30 mg IVPUSH ONETIME ONE Stop: 09/20/20 11:46 Last Admin: 09/20/20 11:54 Dose: 30 mg Documented by: Ketorolac Tromethamine (Ketorolac 30 Mg/Ml Sdv) 30 mg IVPUSH Q6H PRN PRN Reason: Pain Stop: 09/25/20 17:46 Last Admin: 09/21/20 13:09 Dose: 30 mg Documented by: Metoclopramide HCl (Metoclopramide 10 Mg/2 Ml Sdv) 10 mg IVPUSH ONETIME ONE Stop: 09/20/20 13:13 Last Admin: 09/20/20 13:30 Dose: 10 mg Documented by: Morphine Sulfate (Morphine 2 Mg/Ml Syringe) 2 mg IVPUSH ONETIME ONE Stop: 09/20/20 12:15 Last Admin: 09/20/20 12:17 Dose: 2 mg Documented by: Morphine Sulfate (Morphine 4 Mg/Ml Vial) 4 mg IVPUSH ONETIME ONE Stop: 09/20/20 13:13 Last Admin: 09/20/20 13:30 Dose: 4 mg Documented by: Morphine Sulfate (Morphine 2 Mg/Ml Syringe) 2 mg IVPUSH Q3H PRN PRN Reason: PAIN Last Admin: 09/21/20 06:26 Dose: 2 mg Documented by: Ondansetron HCl (Ondansetron 4 Mg/2 Ml Sdv) 4 mg IVPUSH ONETIME ONE Stop: 09/20/20 11:46 Last Admin: 09/20/20 11:54 Dose: 4 mg Documented by: Ondansetron HCl (Ondansetron 4 Mg/2 Ml Sdv) 4 mg IVPUSH Q4H PRN PRN Reason: Nausea/Vomiting Last Admin: 09/21/20 07:26 Dose: 4 mg Documented by: Oxycodone/Acetaminophen (Acetaminophen/Oxycodone 325-5 Mg Tab) 1 tab PO Q4H [facility] Last Admin: 09/21/20 17:01 Dose: Not Given Documented by: Sodium Chloride (Sodium Chloride 0.9% 10 Ml Syringe) 10 ml FLUSH ASDIRECTED PRN PRN Reason: Keep Vein Open
[2020-09-22] MEDS: Multivitamin Tab PO SCH (08:42)
[2020-09-22] MEDS: SERTRALINE 100 MG PO SCH (08:42)
[2020-09-22] MEDS: Pregabalin 75 MG Cap PO SCH ×2 (08:49→14:16)
[2020-09-22] MEDS ORDERED: Acetaminophen/oxyCODONE 325-5 MG Tab PO ONE (10:52)
== END 2020-09-22 10:53 | disposition home or self-care (01) ==
LOC: FB.ED 11:23 → FB.MS 14:49
PROVIDERS: ADMIT Family Medicine; ATTEND Family Medicine
DX: R10.31 Right lower quadrant pain (principal); E66.9 Obesity, unspecified; R31.29 Other microscopic hematuria; K86.89 Other specified diseases of pancreas; G89.29 Other chronic pain; Z20.822 Contact with and (suspected) exposure to COVID-19; Z79.899 Other long term (current) drug therapy; Z90.49 Acquired absence of other specified parts of digestive tract; Z98.890 Other specified postprocedural states; Z68.36 Body mass index [BMI] 36.0-36.9, adult; R79.82 Elevated C-reactive protein (CRP)
CPT/HCPCS: 36415; 74177; 80053; 80076; 81001; 83605; 83690; 84484; 85025; 86140; 96365; 96372; 96374; 96375; 96376; 99285-25; A9270-GY; G0378; J1200; J1650; J1885; J2270; J2405; J2543; J2765; J7030; J7120; Q9967; U0002

== ENCOUNTER 2020-10-01 09:10 | Emergency (ER) | payer MEDICARE ==
[2020-10-01] MEDS ORDERED: Sodium Chloride 0.9% 10 ML Syringe FLUSH PRN (09:18)
[2020-10-01] MEDS ORDERED: Ondansetron 4 MG/2 ML SDV IVPUSH STA ×2 (09:18→10:26)
[2020-10-01] MEDS ORDERED: Sodium Chloride 0.9% 1,000 ML IV STA (09:18)
[2020-10-01] MEDS ORDERED: Morphine 2 MG/ML SYRINGE IVPUSH STA ×3 (09:18→16:51)
[2020-10-01] MEDS ORDERED: Diatrizoate Meglumine/Diatrizoate Sodium 37% 30 ML Bottle PO ONE (11:00)
[2020-10-01] MEDS ORDERED: Iopamidol 755 Mg/ML 100 ML Bottle IV ONE (11:00)
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
[2020-10-01] MEDS ORDERED: HYDROmorphone 2 MG/ML SDV IVPUSH STA (11:12)
[2020-10-01] MEDS ORDERED: Ketorolac 30 MG/ML SDV IVPUSH STA (14:16)
[2020-10-01] MEDS ORDERED: Alum Hydroxide/Mag Hydroxide 15 ML, Lidocaine 2% 15 ML PO ONE ×2 (14:19)
[2020-10-01] MEDS ORDERED: Pantoprazole 40 MG Vial IVPUSH STA (16:51)
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
== END 2020-10-01 15:50 | disposition home or self-care (01) ==
LOC: FB.ED 09:10
DX: R10.13 Epigastric pain (principal); R10.31 Right lower quadrant pain; E66.9 Obesity, unspecified; Z68.33 Body mass index [BMI] 33.0-33.9, adult; Z79.899 Other long term (current) drug therapy
CPT/HCPCS: 36415; 74177; 80053; 80305; 81001; 82150; 83690; 85025; 94760; 96374; 96375; 96376; 99283; 99284; A9270; C9113; J1170; J1885; J2270; J2405; J7030; Q9963; Q9967

== ENCOUNTER 2020-10-02 14:24 | Emergency (ER) | payer MEDICARE ==
[2020-10-02] MEDS ORDERED: Ondansetron 4 MG/2 ML SDV IVPUSH ONE (15:19)
[2020-10-02] MEDS ORDERED: HYDROmorphone 2 MG/ML SDV IVPUSH ONE ×2 (15:19→17:37)
[2020-10-02] MEDS ORDERED: diphenhydrAMINE 50 MG/ML SDV IVPUSH ONE (15:19)
[2020-10-02] MEDS: Sodium Chloride 0.9% 10 ML Syringe FLUSH PRN ×2 (15:20→17:00)
[2020-10-02] MEDS ORDERED: Sodium Chloride 0.9% 1,000 ML IV ONE (15:21)
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
[2020-10-02] MEDS ORDERED: Ketorolac 30 MG/ML SDV IVPUSH ONE (15:56)
--- NOTE | 2020-10-02 17:17 | CR ---
ABDOMEN TWO VIEW 7393 INDICATION: Recurrent right lower quadrant pain. Question obstruction. Four images of the abdomen were obtained in supine and upright projections 10/02/[address] of the abdomen dated 10/01/2020. Clips compatible with cholecystectomy are noted. Clips compatible with splenic surgery are noted in the left upper quadrant. This should be correlated clinically. The pattern of gas and feces is fairly nonspecific with suggestion of a single air-fluid level at the ascending colon--right lower quadrant of questionable significance. It could be related to a localized paralytic ileus such as secondary to appendicitis or cholecystitis, not apparently demonstrated on the previous CT scan yesterday. Clips compatible with pelvic surgery are noted overlying the sacrum. No organomegaly, mass lesions, or pathologic calcifications were identified. Degenerative disc disease is suggested at L3-4, L4-5. No evidence of free air or definite obstructive process of the bowel was identified. IMPRESSION: 1. Probable nonacute abdomen. Single possible air-fluid level in the right lower quadrant is of questionable significance. 2. Multiple surgical sites in the abdomen. 3. Degenerative hypertrophic changes and disc disease L3-4, L4-5. [facility]
[2020-10-02] MEDS ORDERED: Ciprofloxacin 500 MG Tab PO ONE (17:35)
[2020-10-02] MEDS ORDERED: metroNIDAZOLE 500 MG Tab PO ONE (17:35)
[2020-10-02] MEDS ORDERED: Acetaminophen/HYDROcodone 325-5 MG Tab PO ONE (17:57)
== END 2020-10-02 18:10 | disposition home or self-care (01) ==
LOC: FB.ED 14:24
DX: R10.31 Right lower quadrant pain (principal); R79.89 Other specified abnormal findings of blood chemistry; E66.9 Obesity, unspecified; Z68.34 Body mass index [BMI] 34.0-34.9, adult; Z79.899 Other long term (current) drug therapy
CPT/HCPCS: 36415; 74019; 80053; 81001; 83605; 83615; 83690; 85025; 86140; 87040; 96374; 96375; 96376; 99284; A9270; J1170; J1200; J1885; J2405; J7030

== ENCOUNTER 2020-10-03 06:35 | Day surgery (SDC) | payer MEDICARE ==
[2020-10-03] MEDS ORDERED: Propofol 200 MG/20 ML SDV IV ONE (06:36)
[2020-10-03] MEDS ORDERED: Sodium Chloride 0.9% 10 ML Syringe FLUSH PRN (06:45)
[2020-10-03] MEDS ORDERED: Lactated Ringers 1,000 ML IV SCH (06:45)
--- NOTE | 2020-10-03 07:53 | PCM.SN.2 ---
- Free Text/Narrative Note: Pt examined and chart reviewed. Was seen in the ED yesterday again for pain. Procedure and risks of egd and colonoscope was explained to the pt to include risks of bleeding, infection, perforation. She expressed understanding and asks us to proceed.
--- NOTE | 2020-10-03 08:29 | PCM.OPNOTE ---
- General Post-Op/Procedure Note Date of Surgery/Procedure: 10/03/20 Operative Procedure(s): egd with biopsy. C scope Findings: gastritis normal colon Pre Op Diagnosis: rlq abd morris with raditation to the llq Post-Op Diagnosis: gastritis. nl colon Anesthesia Technique: MAC Primary Surgeon: Parker Uriostegui Anesthesia Provider: Israel Warren Pathology: gastric Complications: None Condition: Good Free Text/Narrative:: see dictation
[2020-10-03] MEDS ORDERED: Ketorolac 30 MG/ML SDV IVPUSH ONE (08:54)
--- NOTE | 2020-10-03 13:35 | OR ---
DATE OF OPERATION: 10/03/2020 SURGEON: Parker Uriostegui MD PROCEDURE PERFORMED: EGD and colonoscope. EGD was with cold forceps biopsy. PREOPERATIVE DIAGNOSIS: Right lower quadrant abdominal pain. POSTOPERATIVE DIAGNOSIS: Gastritis. INDICATIONS FOR PROCEDURE: This is a 55-year-old female who has been having a several-month history of abdominal pain. It is located primarily in the right lower quadrant and radiates into the left lower quadrant. She has been hospitalized for several days earlier this month and has presented to the emergency department on several occasions as well. Workup to this point has essentially been unremarkable. She has had a transient elevation in her LFTs as well as her C-reactive protein. CT scan and KUB have all been negative, and in fact, on her last presentation to the emergency room, the only abnormality was a bump in her C-reactive protein. As part of a diagnostic workup to determine the possible etiology for her pain, she was offered and accepted a colonoscopy as well as an upper endoscopy. It should also be noted that the patient has a history of multiple abdominal operations as well. DESCRIPTION OF PROCEDURE: After an excellent IV sedation was administered, the bite block was inserted. The flexible endoscope was passed without difficulty down the patient's esophagus into the stomach. The stomach was insufflated. Scope was passed through the pylorus to the second portion of the duodenum and slowly withdrawn. The following findings were noted: Duodenum is unremarkable. Stomach demonstrated some linear gastritis especially in the area of the antrum. [employer] biopsies were taken of this area. The remainder of the gastric exam was unremarkable. The esophagus itself was also unremarkable. Stomach was deflated and the scope was removed. Our attention was then turned to the patient's colon. Digital rectal exam was performed. No marked abnormality was noted. Flexible colonoscope was inserted and advanced to the cecum without difficulty. The prep was excellent. The following findings were noted. After identifying the cecum by its usual anatomic markers including [employer]'s foot and appendiceal orifice, the scope was slowly withdrawn. Ascending colon, unremarkable. Transverse colon, unremarkable. Descending colon, unremarkable. Sigmoid, unremarkable. Rectum and anus, unremarkable. The patient tolerated the procedure well, was taken to recovery. Results will be sent to the patient via letter. She will be placed on Protonix for her gastritis. /[id number] /MIREYAL
== END 2020-10-03 09:40 | disposition home or self-care (01) ==
LOC: FB.SDS 06:35
PROVIDERS: ATTEND Surgery
DX: K29.50 Unspecified chronic gastritis without bleeding (principal); Z98.890 Other specified postprocedural states
CPT/HCPCS: 00813; 43239; 45378; 88305; 88342; J1885; J2704; J7120

== ENCOUNTER 2021-03-24 15:36 | Emergency (ER) | payer MEDICARE ==
[2021-03-24] MEDS ORDERED: Ketorolac 30 MG/ML SDV IVPUSH STA (15:43)
[2021-03-24] MEDS ORDERED: Morphine 4 MG/ML VIAL IVPUSH STA (15:43)
[2021-03-24] MEDS: Sodium Chloride 0.9% 10 ML Syringe FLUSH PRN ×2 (15:55→16:43)
[2021-03-24] MEDS ORDERED: HYDROmorphone 2 MG/ML SDV IVPUSH ONE (16:38)
[2021-03-24] MEDS ORDERED: cloNIDine 0.1 MG Tab PO STA (16:59)
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
--- NOTE | 2021-03-24 18:00 | CR ---
INDICATION: Left knee injury - twisted knee. Now, unable to move or bear weight. LEFT KNEE, THREE VIEWS: Three views of the left knee were obtained 03/24/21 - no comparisons. There is increased density at the suprapatellar bursa suggesting a knee joint effusion. Hypertrophic changes are noted at the patellofemoral joint, intercondylar spines and notch and medially off the femur and tibia. Joint space is somewhat narrowed laterally at the patellofemoral joint. A spur is noted off the cranial anterior aspect of the patella. A definite acute fracture or dislocation was not identified. IMPRESSION: 1. Suggestion of a small knee joint effusion. 2. Osteoarthritis. Report was called to Dr. Prince at 1734 hours, 03/24/21. [facility]
== END 2021-03-24 18:24 | disposition home or self-care (01) ==
LOC: FB.ED 15:36
DX: S83.92XA Sprain of unspecified site of left knee, initial encounter (principal); E66.9 Obesity, unspecified; Z68.33 Body mass index [BMI] 33.0-33.9, adult; Z79.899 Other long term (current) drug therapy; X50.1XXA Overexertion from prolonged static or awkward postures, initial encounter; Y92.59 Other trade areas as the place of occurrence of the external cause
CPT/HCPCS: 73562; 96374; 96375; 99283; J1170; J1885; J2270

== ENCOUNTER 2021-08-15 20:10 | Emergency (ER) | payer MEDICARE, MEDICAID ==
[2021-08-15] MEDS ORDERED: Sodium Chloride 0.9% 10 ML Syringe FLUSH PRN (20:34)
[2021-08-15] MEDS: Ondansetron 4 MG/2 ML SDV IVPUSH STA (20:55)
[2021-08-15] MEDS: Sodium Chloride 0.9% 1,000 ML IV SCH (20:55)
[2021-08-15] MEDS: Morphine 4 MG/ML VIAL IVPUSH STA (20:57)
[2021-08-15] MEDS: Iopamidol 755 Mg/ML 100 ML Bottle IV ONE (21:27)
[2021-08-15] MEDS: HYDROmorphone 2 MG/ML SDV IVPUSH STA (22:08)
[2021-08-15] MEDS: Labetalol 20 MG/4 ML Syringe IVPUSH STA (22:48)
== END 2021-08-15 23:08 | disposition home or self-care (01) ==
LOC: SUPCPDRO 20:10 → FB.ED 20:10
DX: K52.9 Noninfective gastroenteritis and colitis, unspecified (principal); K21.9 Gastro-esophageal reflux disease without esophagitis; F32.A Depression, unspecified; F41.9 Anxiety disorder, unspecified; E66.9 Obesity, unspecified; Z68.28 Body mass index [BMI] 28.0-28.9, adult; Z79.899 Other long term (current) drug therapy; Z20.822 Contact with and (suspected) exposure to COVID-19
CPT/HCPCS: 36415; 74177; 80053; 81001; 82150; 83605; 83690; 85025; 96374; 96375; 99284; 99284-25; J1170; J2270; J2405; J3490; J7030; Q9967; U0002

== ENCOUNTER 2021-10-05 13:38 | Emergency (ER) | payer MEDICARE, MEDICAID ==
[2021-10-05] MEDS ORDERED: Ondansetron 4 MG Tab.DIS PO ONE (13:39)
[2021-10-05] MEDS ORDERED: Acetaminophen/HYDROcodone 325-5 MG Tab PO ONE (13:39)
[2021-10-05] MEDS ORDERED: Sodium Chloride 0.9% 10 ML Syringe FLUSH PRN (13:57)
[2021-10-05] MEDS ORDERED: HYDROmorphone 2 MG/ML SDV IVPUSH ONE ×2 (13:58→15:56)
[2021-10-05] MEDS ORDERED: Sodium Chloride 0.9% 1,000 ML IV ONE (13:58)
[2021-10-05] MEDS ORDERED: Ondansetron 4 MG/2 ML SDV IVPUSH ONE (13:58)
[2021-10-05] MEDS ORDERED: Ketorolac 30 MG/ML SDV IVPUSH ONE (15:06)
== END 2021-10-05 17:00 | disposition home or self-care (01) ==
LOC: FB.ED 13:38
DX: R10.9 Unspecified abdominal pain (principal); R31.29 Other microscopic hematuria; R11.2 Nausea with vomiting, unspecified; E86.0 Dehydration; E66.9 Obesity, unspecified; Z68.31 Body mass index [BMI] 31.0-31.9, adult
CPT/HCPCS: 36415; 74176; 80053; 81001; 83605; 83735; 85025; 86140; 96374; 96375; 96376; 99283; 99284-25; A9270-GY; J1170; J1885; J2405; J7030; Q0162

== ENCOUNTER 2021-11-19 15:16 | Emergency (ER) | payer MEDICARE, MEDICAID ==
[2021-11-19] MEDS ORDERED: Sodium Chloride 0.9% 10 ML Syringe FLUSH PRN (15:30)
[2021-11-19] MEDS: Morphine 4 MG/ML VIAL IVPUSH STA (15:38)
[2021-11-19] MEDS: Ondansetron 4 MG/2 ML SDV IVPUSH ONE (15:38)
[2021-11-19] MEDS: Sodium Chloride 0.9% 1,000 ML IV SCH (15:39)
[2021-11-19] MEDS: HYDROmorphone 2 MG/ML SDV IVPUSH STA ×2 (16:16→17:30)
[2021-11-19] MEDS: Iopamidol 755 Mg/ML 100 ML Bottle IV ONE (17:08)
[2021-11-19] MEDS: Pantoprazole 40 MG Vial IVPUSH STA (18:53)
== END 2021-11-19 19:00 | disposition home or self-care (01) ==
LOC: FB.ED 15:16
DX: K29.70 Gastritis, unspecified, without bleeding (principal); K21.9 Gastro-esophageal reflux disease without esophagitis; E66.9 Obesity, unspecified; Z68.33 Body mass index [BMI] 33.0-33.9, adult; Z79.899 Other long term (current) drug therapy
CPT/HCPCS: 36415; 74177; 80053; 81001; 82150; 83605; 83690; 85025; 96361; 96374; 96375; 96376; 99283; 99284-25; C9113; J1170; J2270; J2405; J7030; Q9967

== ENCOUNTER 2021-11-22 16:43 | Inpatient (IN) | payer MEDICARE, MEDICAID ==
[2021-11-22] MEDS ORDERED: Ondansetron 4 MG/2 ML SDV IVPUSH ONE ×2 (17:04→18:44)
[2021-11-22] MEDS ORDERED: HYDROmorphone 2 MG/ML SDV IVPUSH ONE ×4 (17:04→21:30)
[2021-11-22] MEDS ORDERED: Sodium Chloride 0.9% 1,000 ML IV ONE (18:01)
[2021-11-22] MEDS ORDERED: Sodium Phosphate,Monobasic/Sodium Phosphate,Dibasic Enema 133 ML Bottle RECTAL ONE (19:58)
[2021-11-22] MEDS ORDERED: Lactulose Soln 10 GM/15 ML 15 ML UD Cup PO ONE (19:58)
[2021-11-22] MEDS ORDERED: LORazepam 2 MG/ML SDV IVPUSH ONE (21:29)
[2021-11-22] MEDS ORDERED: Labetalol 20 MG/4 ML Syringe IVPUSH ONE (21:45)
[2021-11-22] MEDS ORDERED: Acetaminophen 500 MG Tab PO PRN (21:55)
[2021-11-22] MEDS ORDERED: ALPRAZOLAM 0.25 MG PO PRN ×2 (22:02→22:12)
[2021-11-22] MEDS ORDERED: TRAZODONE 100 MG PO PRN (22:02)
[2021-11-22] MEDS: Docusate Sodium 100 MG Cap PO SCH (22:09)
[2021-11-22] MEDS: Dicyclomine 10 MG Cap PO SCH (22:10)
[2021-11-23] MEDS ORDERED: Sodium Chloride 0.9% 10 ML SDV IV SCH (00:45)
[2021-11-23] MEDS: Sodium Chloride 0.9% 1,000 ML IV SCH ×3 (01:03→21:46)
[2021-11-23] MEDS: Labetalol 20 MG/4 ML Syringe IVPUSH PRN ×2 (01:13→09:37)
[2021-11-23] MEDS ORDERED: Sodium Chloride 0.9% 10 ML Syringe FLUSH PRN (01:15)
[2021-11-23] MEDS: Ondansetron 4 MG/2 ML SDV IVPUSH PRN ×3 (01:20→13:34)
[2021-11-23] MEDS: HYDROmorphone 2 MG/ML SDV IVPUSH PRN ×6 (02:13→23:09)
[2021-11-23] MEDS ORDERED: LORazepam 2 MG/ML SDV IVPUSH ONE (02:31)
[2021-11-23] MEDS: Dicyclomine 10 MG Cap PO SCH ×4 (06:56→21:50)
[2021-11-23] MEDS ORDERED: Pantoprazole 40 MG Vial IVPUSH SCH (09:00)
[2021-11-23] MEDS: Pantoprazole 40 MG Tab.CR PO SCH (09:31)
[2021-11-23] MEDS: Lactulose Soln 10 GM/15 ML 15 ML UD Cup PO SCH ×3 (09:31→21:54)
[2021-11-23] MEDS: Pregabalin 75 MG Cap PO SCH ×5 (09:36→21:49)
[2021-11-23] MEDS: Docusate Sodium 100 MG Cap PO SCH ×2 (09:36→21:49)
[2021-11-23] MEDS: SERTRALINE 100 MG PO SCH (09:37)
[2021-11-23] MEDS ORDERED: Alum Hydroxide/Mag Hydroxide 15 ML, Lidocaine 2% 15 ML PO ONE ×2 (09:51)
[2021-11-23] MEDS ORDERED: Lisinopril 10 MG Tab PO SCH ×2 (10:00→21:00)
[2021-11-23] MEDS ORDERED: Polyethylene Glycol/Electrolytes 4,000 ML Bottle NGTUBE ONE (17:00)
[2021-11-23] MEDS ORDERED: LORazepam 2 MG/ML SDV IVPUSH PRN (17:02)
[2021-11-23] MEDS: NIFEdipine 30 MG Tab.ER PO SCH (17:30)
[2021-11-24] MEDS ORDERED: Labetalol 20 MG/4 ML Syringe IVPUSH PRN (01:11)
[2021-11-24] MEDS: HYDROmorphone 2 MG/ML SDV IVPUSH PRN ×2 (03:09→07:09)
[2021-11-24] MEDS: Sodium Chloride 0.9% 1,000 ML IV SCH ×2 (05:48→14:01)
[2021-11-24] MEDS: SERTRALINE 100 MG PO SCH (08:41)
[2021-11-24] MEDS: Dicyclomine 10 MG Cap PO SCH (08:42)
[2021-11-24] MEDS: Docusate Sodium 100 MG Cap PO SCH (08:42)
[2021-11-24] MEDS: Lactulose Soln 10 GM/15 ML 15 ML UD Cup PO SCH ×2 (08:43→08:54)
[2021-11-24] MEDS: Pregabalin 75 MG Cap PO SCH ×2 (08:48→13:29)
[2021-11-24] MEDS: Ketorolac 30 MG/ML SDV IVPUSH SCH ×2 (08:54→14:09)
[2021-11-24] MEDS: NIFEdipine 30 MG Tab.ER PO SCH (08:55)
[2021-11-24] MEDS ORDERED: Enoxaparin 40 MG/0.4 ML Syringe SUBCUT SCH (09:15)
[2021-11-24] MEDS: Pantoprazole 40 MG Tab.CR PO SCH (09:17)
[2021-11-24] MEDS ORDERED: traZODone 100 MG Tab PO PRN (11:40)
[2021-11-24] MEDS ORDERED: HYDROmorphone 2 MG/ML SDV IVPUSH ONE (12:55)
[2021-11-24] MEDS: Ondansetron 4 MG/2 ML SDV IVPUSH PRN (13:10)
[2021-11-24] MEDS ORDERED: HYDROmorphone 2 MG/ML SDV IVPUSH PRN (13:50)
[2021-11-25] MEDS ORDERED: Sertraline 50 MG Tab PO SCH (09:00)
[2021-11-27 05:47] LABS: HBSAG SCREEN SEE SEPARATE REPORT; HCV AB SEE SEPARATE REPORT; HEP A AB, IGM SEE SEPARATE REPORT; HEP B CORE AB, IGM SEE SEPARATE REPORT
== END 2021-11-24 16:45 | DRG 392 ==
LOC: FB.ED 16:43 → UNDOADMOB 21:47 → FB.MS 21:47 → OBSVTOIN 11-24 09:51
PROVIDERS: ADMIT Family Medicine; ATTEND Family Medicine
DX: R10.84 Generalized abdominal pain (principal); Z87.19 Personal history of other diseases of the digestive system; N28.9 Disorder of kidney and ureter, unspecified; R11.10 Vomiting, unspecified; F41.9 Anxiety disorder, unspecified; F32.A Depression, unspecified; E66.9 Obesity, unspecified; Z51.5 Encounter for palliative care; R11.2 Nausea with vomiting, unspecified; D64.9 Anemia, unspecified; Z20.822 Contact with and (suspected) exposure to COVID-19; E86.0 Dehydration; M19.90 Unspecified osteoarthritis, unspecified site; M79.7 Fibromyalgia; K59.00 Constipation, unspecified; I10 Essential (primary) hypertension; Z96.651 Presence of right artificial knee joint; Z90.49 Acquired absence of other specified parts of digestive tract; Z90.710 Acquired absence of both cervix and uterus; Z68.31 Body mass index [BMI] 31.0-31.9, adult
CPT/HCPCS: 36415; 43752; 71045; 71046; 74019; 74176; 80048; 80053; 80074; 81001; 82150; 83605; 83615; 84443; 84484; 85025; 85379; 86140; 87040; 93005; 96361; 96374; 96375; 96376; 99284; 99285-25; A9270-GY; G0378; J1170; J1650; J1885; J2060; J2405; J3490; J7030; U0002

== ENCOUNTER 2022-02-08 08:40 | Emergency (ER) | payer MEDICARE, MEDICAID ==
[2022-02-08] MEDS ORDERED: Ibuprofen 800 MG Tab PO ONE (08:43)
[2022-02-08] MEDS ORDERED: traMADol 50 MG Tab PO ONE (08:43)
[2022-02-08] MEDS ORDERED: Acetaminophen/HYDROcodone 325-5 MG Tab PO STA (09:35)
== END 2022-02-08 10:25 | disposition home or self-care (01) ==
LOC: FB.ED 08:40
DX: S90.31XA Contusion of right foot, initial encounter (principal); E66.9 Obesity, unspecified; Z68.31 Body mass index [BMI] 31.0-31.9, adult; W20.8XXA Other cause of strike by thrown, projected or falling object, initial encounter
CPT/HCPCS: 73630; 99283; A9270

== ENCOUNTER 2022-04-12 10:36 | Emergency (ER) | payer MEDICAID, MEDICARE ==
[2022-04-12] MEDS ORDERED: Acetaminophen/oxyCODONE 325-5 MG Tab PO ONE (10:37)
[2022-04-12] MEDS: Sodium Chloride 0.9% 10 ML Syringe FLUSH PRN ×5 (11:20→14:02)
[2022-04-12] MEDS ORDERED: HYDROmorphone 2 MG/ML SDV IVPUSH ONE (11:24)
[2022-04-12 11:37] LABS: ESTIMATED GFR 86 mL/min (>60)
[2022-04-12] MEDS ORDERED: Sodium Chloride 0.9% 1,000 ML IV ONE (12:07)
[2022-04-12] MEDS ORDERED: Ondansetron 4 MG/2 ML SDV IVPUSH ONE (12:35)
[2022-04-12] MEDS ORDERED: Iopamidol 755 Mg/ML 100 ML Bottle IV ONE (12:48)
[2022-04-12] MEDS ORDERED: Diatrizoate Meglumine/Diatrizoate Sodium 37% 30 ML Bottle PO ONE (12:48)
[2022-04-12] MEDS ORDERED: Ketorolac 30 MG/ML SDV IVPUSH ONE (13:47)
[2022-04-12] MEDS ORDERED: LORazepam 2 MG/ML SDV IVPUSH ONE (14:45)
[2022-04-12] MEDS ORDERED: Labetalol 20 MG/4 ML Syringe IVPUSH ONE (14:45)
== END 2022-04-12 16:03 | disposition home or self-care (01) ==
LOC: FB.ED 10:36
DX: R10.84 Generalized abdominal pain (principal); E86.0 Dehydration; F45.42 Pain disorder with related psychological factors; E66.9 Obesity, unspecified; Z68.29 Body mass index [BMI] 29.0-29.9, adult; Z79.899 Other long term (current) drug therapy; Z90.49 Acquired absence of other specified parts of digestive tract
CPT/HCPCS: 36415; 74177; 80053; 80307; 81001; 83605; 85025; 85379; 86140; 96361; 96374; 96375; 99284; A9270; J1170; J1885; J2060; J2405; J3490; J7030; Q9963; Q9967

== ENCOUNTER 2022-08-09 19:41 | Emergency (ER) | payer MEDICARE, OTHER ==
[2022-08-09] MEDS ORDERED: Acetaminophen/HYDROcodone 325-5 MG Tab PO ONE (19:42)
[2022-08-09] MEDS ORDERED: Acetaminophen/HYDROcodone 325-10 MG Tab PO ONE (20:44)
== END 2022-08-09 23:00 | disposition home or self-care (01) ==
LOC: FB.ED 19:41
DX: S63.502A Unspecified sprain of left wrist, initial encounter (principal); S60.212A Contusion of left wrist, initial encounter; W06.XXXA Fall from bed, initial encounter
CPT/HCPCS: 73110-LT; 99283; A9270-GY